=== PATIENT | male | born 1930 | race Caucasian/White ===

== ENCOUNTER 2017-03-12 09:57 | Emergency (ER) | payer MEDICARE ==
[2017-03-12] MEDS ORDERED: Sodium Chloride 0.9% 10 ML Syringe FLUSH PRN (10:12)
[2017-03-12] MEDS ORDERED: Sodium Chloride 0.9% 2.5 ML Syringe FLUSH PRN (10:12)
[2017-03-12] MEDS ORDERED: Aspirin 81 MG Tab.Chew PO ONE (10:17)
--- NOTE | 2017-03-12 10:51 | EDM.PDOC ---
ED HPI GENERAL MEDICAL PROBLEM - General Stated Complaint: FAINTED Time Seen by Provider: 03/12/17 10:01 Source of Information: Reports: Patient History Limitations: Reports: No Limitations - History of Present Illness INITIAL COMMENTS - FREE TEXT/NARRATIVE: History of present illness: []Patient was sitting down about to his breakfast when he passed out in his chair. Apparently a witness at home stated this color change. By the time EMS arrived he was awake, had some left arm weakness and sluggish pupils but otherwise neurologically normal. When patient arrived and had no focal deficits denied any chest pain, headache, change in vision, numbness or tingling and stated he was hungry. Review of systems: As per history of present illness and below otherwise all systems reviewed and negative. Past medical history: As per history of present illness and as reviewed below otherwise noncontributory. Surgical history: As per history of present illness and as reviewed below otherwise noncontributory. Social history: No reported history of drug or alcohol abuse. Family history: As per history of present illness and as reviewed below otherwise noncontributory. Physical exam: General: Well developed, well nourished in NAD HEENT: Atraumatic, normocephalic, pupils reactive, negative for conjunctival pallor or scleral icterus, mucous membranes moist, throat clear, neck supple, nontender, trachea midline. Lungs: Clear to auscultation, breath sounds equal bilaterally, chest nontender. Heart: S1S2, regular, negative for clicks, rubs, or JVD. Abdomen: Soft, nondistended, nontender. Negative for masses or hepatosplenomegaly. Negative for costovertebral tenderness. Pelvis: Stable nontender. Genitourinary: Deferred. Rectal: Deferred. Extremities: Atraumatic, negative for cords or calf pain. Neurovascular unremarkable. Neuro: Awake, alert, oriented. Cranial nerves II through XII unremarkable. Cerebellum unremarkable. Motor and sensory unremarkable throughout. Exam nonfocal. Diagnostics: [] CT shows small vessel disease otherwise normal, labs are normal Therapeutics: [] Patient was given fluids and observed Impression: [] Syncopal episodes. Family at the bedside asking for admission however patient refused Plan: [] Followup PMD and cardiology for possible Holter monitoring Definitive disposition and diagnosis as appropriate pending reevaluation and review of above. Right knee Pain Score (Numeric/FACES): 4 - Related Data Allergies Allergy/AdvReac Type Severity Reaction Status Date / Time No Known Allergies Allergy Verified 03/12/17 10:23 Home Meds: Home Meds . [No Known Home Meds] 03/12/17 [History] ED ROS GENERAL - Review of Systems Review Of Systems: See Below (See history of present illness) - Physical Exam Exam: See Below (See history of present illness) Course - Vital Signs Last Recorded V/S: Last Vital Signs Temp 36.1 C 03/12/17 09:58 Pulse 70 03/12/17 11:30 Resp 16 03/12/17 11:30 BP 132/70 03/12/17 11:30 Pulse Ox 98 03/12/17 11:30 - Orders/Labs/Meds Orders: Active Orders 24 hr Category Date Time Status Sodium Chloride 0.9% [Saline Flush] Med 03/12/17 10:12 Active 10 ml FLUSH ASDIRECTED PRN Sodium Chloride 0.9% [Saline Flush] Med 03/12/17 10:12 Active 2.5 ml FLUSH ASDIRECTED PRN Saline Lock Insert [OM.PC] Stat Oth 03/12/17 10:12 Ordered Medication Orders Sodium Chloride (Saline Flush) 10 ml FLUSH ASDIRECTED PRN PRN Reason: Keep Vein Open Last Admin: 03/12/17 10:36 Dose: 10 ml Sodium Chloride (Saline Flush) 2.5 ml FLUSH ASDIRECTED PRN PRN Reason: Keep Vein Open Last Admin: 03/12/17 10:36 Dose: 2.5 ml Labs: Laboratory Tests 03/12/17 03/12/17 03/12/17 Range/Units 10:10 10:10 10:10 WBC 10.54 (4.0-11.0) K/uL RBC 4.13 L (4.50-5.90) M/uL Hgb 12.7 L (13.0-17.0) g/dL Hct 39.6 (38.0-50.0) % MCV 95.9 (80.0-98.0) fL MCH 30.8 (27.0-32.0) pg MCHC 32.1 (31.0-37.0) g/dL RDW Std Deviation 49.7 (28.0-62.0) fl RDW Coeff of Francisco 14 (11.0-15.0) % Plt Count 230 (150-400) K/uL MPV 8.90 (7.40-12.00) fL Neut % (Auto) 56.6 (48.0-80.0) % Lymph % (Auto) 33.0 (16.0-40.0) % [place] % (Auto) 7.7 (0.0-15.0) % Eos % (Auto) 2.5 (0.0-7.0) % Baso % (Auto) 0.2 (0.0-1.5) % Neut # (Auto) 6.0 H (1.4-5.7) K/uL Lymph # (Auto) 3.5 H (0.6-2.4) K/uL [place] # (Auto) 0.8 (0.0-0.8) K/uL Eos # (Auto) 0.3 (0.0-0.7) K/uL Baso # (Auto) 0.0 (0.0-0.1) K/uL Nucleated RBC % 0.0 /100WBC Nucleated RBCs # 0 K/uL Sodium 141 (136-146) mmol/L Potassium 4.7 (3.5-5.1) mmol/L Chloride 108 (98-110) mmol/L Carbon Dioxide 23 (21-31) mmol/L BUN 23 (6.0-23.0) mg/dL Creatinine 1.4 (0.6-1.5) mg/dL Est Cr Clr Drug Dosing 37.66 mL/min Estimated GFR (MDRD) 47.8 ml/min Glucose 141 H (60-110) mg/dL Calcium 9.0 (8.8-10.8) mg/dL Total Bilirubin 0.9 (0.1-1.5) mg/dL AST 18 (5-40) IU/L ALT 15 (8-54) IU/L Alkaline Phosphatase 52 (40-150) Troponin I < 0.10 (0.0-0.29) NG/ML Total Protein 7.9 (6.0-8.0) g/dL Albumin 4.2 (3.4-4.8) g/dL Globulin 3.7 H (2.0-3.5) g/dL Albumin/Globulin Ratio 1.1 L (1.3-2.8) Meds: Medications Generic Name Dose Route Start Last Admin Trade Name Freq PRN Reason Stop Dose Admin Sodium Chloride 10 ml 03/12/17 10:12 03/12/17 10:36 Saline Flush FLUSH 10 ml ASDIRECTED PRN Administration Keep Vein Open Sodium Chloride 2.5 ml 03/12/17 10:12 03/12/17 10:36 Saline Flush FLUSH 2.5 ml ASDIRECTED PRN Administration Keep Vein Open Discontinued Medications Generic Name Dose Route Start Last Admin Trade Name Freq PRN Reason Stop Dose Admin Aspirin 324 mg 03/12/17 10:17 03/12/17 10:34 Aspirin PO 03/12/17 10:18 324 mg ONETIME ONE Administration Departure - Departure Time of Disposition: 11:45 Disposition: Home, Self-Care 01 Condition: good Clinical Impression: Syncopal episodes Qualifiers: Syncope type: unspecified Qualified Code(s): R55 - Syncope and collapse - Discharge Information Instructions: Syncope, [id number] Referrals: PCP,None [Primary Care Provider] - Forms: ED Department Discharge Additional Instructions: The following information is given to patients seen in the emergency department who are being discharged to home. This information is to outline your options for follow-up care. We provide all patients seen in our emergency department with a follow-up referral. The need for follow-up, as well as the timing and circumstances, are variable depending upon the specifics of your emergency department visit. If you don't have a primary care physician on staff, we will provide you with a referral. We always advise you to contact your personal physician following an emergency department visit to inform them of the circumstance of the visit and for follow-up with them and/or the need for any referrals to a consulting specialist. The emergency department will also refer you to a specialist when appropriate. This referral assures that you have the opportunity for follow-up care with a specialist. All of these measure are taken in an effort to provide you with optimal care, which includes your follow-up. Under all circumstances we always encourage you to contact your private physician who remains a resource for coordinating your care. When calling for follow-up care, please make the office aware that this follow-up is from your recent emergency room visit. If for any reason you are refused follow-up, please contact the [facility] Emergency Department at and asked to speak to the emergency department charge nurse. ANDRÉS [facility] [address] [place] [id number] [facility] [address] [place] [address] [place] [id number] [phone] - My Orders Last 24 Hours: My Active Orders 03/12/17 10:12 Sodium Chloride 0.9% [Saline Flush] 10 ml FLUSH ASDIRECTED PRN Sodium Chloride 0.9% [Saline Flush] 2.5 ml FLUSH ASDIRECTED PRN Saline Lock Insert [OM.PC] Stat - Assessment/Plan Last 24 Hours: My Active Orders 03/12/17 10:12 Sodium Chloride 0.9% [Saline Flush] 10 ml FLUSH ASDIRECTED PRN Sodium Chloride 0.9% [Saline Flush] 2.5 ml FLUSH ASDIRECTED PRN Saline Lock Insert [OM.PC] Stat
--- NOTE | 2017-03-12 11:20 | CT ---
EXAMINATION: Non contrast CT head. Coronal and sagittal reformats. HISTORY: Confusion FINDINGS: No evidence of intra or extra axial hemorrhage, mass, midline shift, hydrocephalus or edema. There is moderate generalized atrophy. 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 Mild periventricular wh ite matter hypodensities are noted. No hypoattenuation changes in the major vascular territories to suggest acute infarct. No abnormal intracranial calcifications are detected. No evidence of substantial vascular calcifica tions. Paranasal sinuses and mastoid air cells are well aerated without substantial findings. The orbits a nd globes are symmetric. Pituitary fossa appears unremarkable. Calvarium is intact. No evidence of skull fracture. Degenerative changes are noted within the right temporomandibular joint. IMPRESSION: 1. Generalized atrophy and small vessel ischemic changes without acute findings.
--- NOTE | 2017-03-12 11:21 | CR ---
EXAMINATION: Portable chest radiograph. HISTORY: Shortness of breath. FINDINGS: The trachea is midline. The cardiomediastinal silhouette is within normal limits. No pulmonary infil trates, effusions or pneumothorax. Mild interstitial prominence. Aortic calcifications are noted. Osseous structures appear unremarkable. IMPRESSION: No acute cardiopulmonary process.
[2017-03-12 12:13] VITALS: BP 141/70
== END 2017-03-12 12:11 | disposition home or self-care (01) ==
LOC: MW.ED 09:57
DX: R55 Syncope and collapse (principal)
CPT/HCPCS: 70450; 71010; 80053; 84484; 85025; 93005; 99285; A9270; 99284

== ENCOUNTER 2017-09-01 15:11 | Inpatient (IN) | payer MEDICARE ==
[2017-09-01] MEDS ORDERED: Sodium Chloride 0.9% 1,000 ML IV ONE (15:36)
[2017-09-01] MEDS ORDERED: Ketorolac 15 MG/ML SDV IVPUSH STA ×2 (15:36→18:06)
--- NOTE | 2017-09-01 15:45 | EDM.PDOC ---
ED HPI GENERAL MEDICAL PROBLEM - General Chief Complaint: Lower Extremity Injury/Pain Stated Complaint: LEFT HIP PAIN Time Seen by Provider: 09/01/17 15:13 Source of Information: Reports: Patient, Family History Limitations: Reports: No Limitations - History of Present Illness INITIAL COMMENTS - FREE TEXT/NARRATIVE: HISTORY AND PHYSICAL: History of present illness: Patient is an 87-year-old male who presents to the emergency room by [facility] after having a fall this morning. The daughter is at the bedside and states that he was placed in [facility] approximately 2 weeks ago for dementia. She states that since that time he has had multiple falls which have been witnessed an unwitnessed. [facility] nursing staff reported that they believe he fell sometime last night as he has a new skin tear to his left elbow. Today while ambulating to lunch he felt "on his bottom" but did not hit his head. Patient is alert but disoriented to place and time; it is the patient's baseline per daughter. He currently complains of left hip pain which increases with ambulation and weightbearing. Has had no previous injury, surgery or major trauma to the affected extremity. Patient has a past medical history of dementia, aortic valve stenosis with murmur, muscle weakness, chronic kidney disease, and syncope. Review of systems: As per history of present illness and below otherwise all systems reviewed and negative. Past medical history: As per history of present illness and as reviewed below otherwise noncontributory. Surgical history: As per history of present illness and as reviewed below otherwise noncontributory. Social history: No reported history of drug or alcohol abuse. Family history: As per history of present illness and as reviewed below otherwise noncontributory. Physical exam: Gen.: Well-developed and well-nourished 87-year-old male. Pleasant, alert but disoriented to person and place (has dementia at baseline). HEENT: Normocephalic, pupils reactive, negative for conjunctival pallor or scleral icterus, mucous membranes moist, throat clear, neck supple, nontender, trachea midline. Lungs: Clear to auscultation, breath sounds equal bilaterally, chest nontender. Heart: S1S2, regular rate and rhythm with murmur Abdomen: Soft, nondistended, nontender. Negative for masses or hepatosplenomegaly. Negative for costovertebral tenderness. Pelvis: Stable nontender. Genitourinary: Deferred. Rectal: This was done with a drop wirer at the bedside. No external or internal hemorrhoids noted. Good rectal tone. Negative Hemoccult stool. Skin: Skin tear noted to left elbow. Multiple bruises noted to the upper extremities at various stages of healing. Daughter reports that this is from the falls he has been having over the past several months. Some soft tissue swelling noted over the left lateral hip. Extremities: Able to move all extremities per self. Has increased pain with range of motion. Strong pedal pulses bilaterally. Capillary refill less than 3 seconds to lower extremities. No obvious rotation or shortening of the left lower extremity. negative for cords or calf pain. Neurovascular unremarkable. Neuro: Awake, alert, is oriented to place and time. Cranial nerves II through XII unremarkable. Cerebellum unremarkable. Motor and sensory unremarkable throughout. Exam nonfocal. Notes: 1700-patient is just now going down for imaging/x-ray. Prior to transfer to radiology department patient states he is comfortable. Vital signs are stable. Awaiting on some labs. 1750-Head CT: No evidence of an acute intracranial hemorrhage, or mass. No acute findings on the cervical spine CT. 1810- The patient has difficulty performing ADLs. The nurse went to give the patient to drink of water and he put the water in his mouth and spit it back in the cup. Staff also assisted him to use the urinal and he had difficulty performing this activity. The family at the bedside states that he progressively gotten worse with performing ADLs. 1830- no acute findings of the left ankle x-ray. X-ray of the left hip and pelvis recommend getting a CT. Due to the Hemoglobin of 9.5 (was previously 12.7 in 03/2017) - a rectal/hemocult assessment was done with a drop wirer with a chaparone at bedside - Negative hemoccult stool. 184- Dr Conley was consulted on this case. She would like to wait to view the CT results prior to accepting this patient. 1999- CT abdomen/pelvis shows nondisplaced fractures of the left superior pubic ramus and left pubic bone. Dr. Conley consulted with this results. Will admit to med/surg as inpatient for anemia & fracture. Diagnostics: CBC, CMP, CPK, troponin, EKG, head CT, cervical spine CT, x-ray of the left hip/ pelvis, left knee, left ankle, CT abdomen/pelvis Therapeutics: IV fluid, tramadol, toradol Impression: #1 Contusion, #2 Fall, #3 anemia #4 Nondisplaced superior pubic ramus and pubic bone fracture, left Plan: Admit to Med/Surg by Dr Conley- Inpatient Definitive disposition and diagnosis as appropriate pending reevaluation and review of above. Duration: Week(s): (Recurring today) Location: Reports: Pelvis, Lower Extremity, Left Improves with: Reports: Rest Worsens with: Reports: Other (Weight bearing), Movement Associated Symptoms: Reports: No Other Symptoms - Related Data Allergies Allergy/AdvReac Type Severity Reaction Status Date / Time No Known Allergies Allergy Verified 09/01/17 15:23 Home Meds: Home Meds . [No Known Home Meds] 03/12/17 [History] Past Medical History - Past Health History Medical/Surgical History: Denies Medical/Surgical History HEENT History: Reports: Cataract Cardiovascular History: Reports: None Respiratory History: Reports: None Gastrointestinal History: Reports: None Genitourinary History: Reports: None Musculoskeletal History: Reports: Arthritis Neurological History: Reports: None Psychiatric History: Reports: Dementia Endocrine/Metabolic History: Reports: None Hematologic History: Reports: None Immunologic History: Reports: None Oncologic (Cancer) History: Reports: None Dermatologic History: Reports: None - Infectious Disease History Infectious Disease History: Reports: None - Past Surgical History Head Surgeries/Procedures: Reports: None HEENT Surgical History: Reports: Cataract Surgery Cardiovascular Surgical History: Reports: None Respiratory Surgical History: Reports: None GI Surgical History: Reports: None Male Surgical History: Reports: None Endocrine Surgical History: Reports: None Neurological Surgical History: Reports: None Dermatological Surgical History: Reports: None Social & Family History - Family History Family Medical History: Noncontributory - Tobacco Use Smoking Status *Q: Never Smoker Second Hand Smoke Exposure: No - Caffeine Use Caffeine Use: Reports: Coffee - Recreational Drug Use Recreational Drug Use: No Review of Systems - Review of Systems Review Of Systems: ROS reveals no pertinent complaints other than HPI. ED EXAM, GENERAL - Physical Exam Exam: See Below (See dictation) EKG INTERPRETATION EKG Date: 09/01/17 Time: 17:40 Rhythm: NSR Rate (Beats/Min): 84 Comparison: Change From Previous EKG EKG Interpretation Comments: Reviewed by myself and Dr Scruggs Course - Vital Signs Last Recorded V/S: Last Vital Signs Temp 98.3 F 09/01/17 19:14 Pulse 73 09/01/17 19:14 Resp 21 H 09/01/17 19:14 BP 101/63 09/01/17 19:14 Pulse Ox 96 09/01/17 19:14 - Orders/Labs/Meds Orders: Active Orders 24 hr Category Date Time Status Admission Status [Patient Status] [ADT] Stat ADT 09/01/17 20:10 Ordered Communication Order [RC] STAT Care 09/01/17 18:09 Active EKG Documentation Completion [RC] STAT Care 09/01/17 15:36 Active Abdomen Pelvis wo Cont [CT] Stat Exams 09/01/17 18:41 Taken Ankle Min 3V Lt [CR] Stat Exams 09/01/17 15:36 Ordered Cervical Spine wo Cont [CT] Stat Exams 09/01/17 15:34 Taken Chest 1V Frontal [CR] Stat Exams 09/01/17 15:34 Ordered Head wo Cont [CT] Stat Exams 09/01/17 15:34 Taken Hip Min 1V w Pelvis Lt [CR] Stat Exams 09/01/17 15:36 Ordered Knee 1V or 2V Lt [CR] Stat Exams 09/01/17 15:36 Taken Sodium Chloride 0.9% [Normal Saline] 1,000 ml Med 09/01/17 15:36 Active IV STAT Medication Orders Sodium Chloride (Normal Saline) 1,000 mls @ 150 mls/hr IV STAT ONE Stop: 09/01/17 22:15 Last Admin: 09/01/17 16:03 Dose: 150 mls/hr Labs: Laboratory Tests 09/01/17 09/01/17 09/01/17 Range/Units 16:00 16:00 16:49 WBC 6.78 (4.0-11.0) K/uL RBC 3.18 L (4.50-5.90) M/uL Hgb 9.5 L (13.0-17.0) g/dL Hct 29.6 L (38.0-50.0) % MCV 93.1 (80.0-98.0) fL MCH 29.9 (27.0-32.0) pg MCHC 32.1 (31.0-37.0) g/dL RDW Std Deviation 47.7 (28.0-62.0) fl RDW Coeff of [place] 14 (11.0-15.0) % Plt Count 246 (150-400) K/uL MPV 8.40 (7.40-12.00) fL Neut % (Auto) 75.6 (48.0-80.0) % Lymph % (Auto) 11.4 L (16.0-40.0) % [place] % (Auto) 10.5 (0.0-15.0) % Eos % (Auto) 2.4 (0.0-7.0) % Baso % (Auto) 0.1 (0.0-1.5) % Neut # (Auto) 5.1 (1.4-5.7) K/uL Lymph # (Auto) 0.8 (0.6-2.4) K/uL [place] # (Auto) 0.7 (0.0-0.8) K/uL Eos # (Auto) 0.2 (0.0-0.7) K/uL Baso # (Auto) 0.0 (0.0-0.1) K/uL Nucleated RBC % 0.0 /100WBC Nucleated RBCs # 0 K/uL Sodium 134 L (136-146) mmol/L Potassium 4.2 (3.5-5.1) mmol/L Chloride 102 (98-110) mmol/L Carbon Dioxide 25 (21-31) mmol/L BUN 17 (6.0-23.0) mg/dL Creatinine 1.0 (0.6-1.5) mg/dL Est Cr Clr Drug Dosing TNP Estimated GFR (MDRD) > 60.0 ml/min Glucose 129 H (60-110) mg/dL Calcium 8.2 L (8.8-10.8) mg/dL Total Bilirubin 0.6 (0.1-1.5) mg/dL AST 18 (5-40) IU/L ALT 20 (8-54) IU/L Alkaline Phosphatase 52 (40-150) Creatine Kinase 329 H (9-236) IU/L Troponin I < 0.10 (0.0-0.29) NG/ML Total Protein 6.6 (6.0-8.0) g/dL Albumin 3.3 L (3.4-4.8) g/dL Globulin 3.3 (2.0-3.5) g/dL Albumin/Globulin Ratio 1.0 L (1.3-2.8) Urine Color YELLOW Urine Appearance CLEAR Urine pH 6.0 (5.0-8.0) Ur Specific [place] 1.010 (1.001-1.035) Urine Protein NEGATIVE (NEGATIVE) mg/dL Urine Glucose (UA) NEGATIVE (NEGATIVE) mg/dL Urine Ketones NEGATIVE (NEGATIVE) mg/dL Urine Occult Blood NEGATIVE (NEGATIVE) Urine Nitrite NEGATIVE (NEGATIVE) Urine Bilirubin NEGATIVE (NEGATIVE) Urine Urobilinogen 0.2 (<2.0) EU/dL Ur Leukocyte Esterase NEGATIVE (NEGATIVE) Urine RBC NONE SEEN (0-2/HPF) Urine WBC 0-1 (0-5/HPF) Ur Epithelial Cells OCCASIONAL (NONE-FEW) Urine Bacteria RARE (NEGATIVE) Meds: Medications Generic Name Dose Route Start Last Admin Trade Name Freq PRN Reason Stop Dose Admin Sodium Chloride 1,000 mls @ 150 mls/hr 09/01/17 15:36 09/01/17 16:03 Normal Saline IV 09/01/17 22:15 150 mls/hr STAT ONE Administration Discontinued Medications Generic Name Dose Route Start Last Admin Trade Name Freq PRN Reason Stop Dose Admin Bacitracin 1 dose 09/01/17 18:08 09/01/17 19:47 Bacitracin Oint 1 Gm TOP 09/01/17 18:09 1 dose ONETIME ONE Administration Ketorolac Tromethamine 15 mg 09/01/17 15:36 09/01/17 16:05 Toradol IVPUSH 09/01/17 15:37 Not Given NOW STA Ketorolac Tromethamine 15 mg 09/01/17 18:06 09/01/17 18:11 Toradol IVPUSH 09/01/17 18:07 15 mg NOW STA Administration Tramadol HCl 50 mg 09/01/17 15:47 09/01/17 16:43 Ultram PO 09/01/17 15:48 50 mg ONETIME ONE Administration Departure - Departure Time of Disposition: 20:14 Disposition: Admitted As Inpatient 64 Condition: Good Clinical Impression: Falls frequently Anemia Qualifiers: Anemia type: unspecified type Qualified Code(s): D64.9 - Anemia, unspecified Pubic ramus fracture Qualifiers: Encounter type: initial encounter Fracture type: closed Laterality: left Qualified Code(s): S32.592A - Other specified fracture of left pubis, initial encounter for closed fracture - Discharge Information Referrals: Emmanuel Raygoza MD [Primary Care Provider] - Forms: ED Department Discharge - My Orders Last 24 Hours: My Active Orders 09/01/17 15:34 Cervical Spine wo Cont [CT] Stat Chest 1V Frontal [CR] Stat Head wo Cont [CT] Stat 09/01/17 15:36 EKG Documentation Completion [RC] STAT Ankle Min 3V Lt [CR] Stat Hip Min 1V w Pelvis Lt [CR] Stat Knee 1V or 2V Lt [CR] Stat Sodium Chloride 0.9% [Normal Saline] 1,000 ml IV STAT 09/01/17 18:09 Communication Order [RC] STAT 09/01/17 18:41 Abdomen Pelvis wo Cont [CT] Stat 09/01/17 20:10 Admission Status [Patient Status] [ADT] Stat - Assessment/Plan Last 24 Hours: My Active Orders 09/01/17 15:34 Cervical Spine wo Cont [CT] Stat Chest 1V Frontal [CR] Stat Head wo Cont [CT] Stat 09/01/17 15:36 EKG Documentation Completion [RC] STAT Ankle Min 3V Lt [CR] Stat Hip Min 1V w Pelvis Lt [CR] Stat Knee 1V or 2V Lt [CR] Stat Sodium Chloride 0.9% [Normal Saline] 1,000 ml IV STAT 09/01/17 18:09 Communication Order [RC] STAT 09/01/17 18:41 Abdomen Pelvis wo Cont [CT] Stat 09/01/17 20:10 Admission Status [Patient Status] [ADT] Stat
[2017-09-01] MEDS ORDERED: traMADol 50 MG Tab PO ONE (15:47)
[2017-09-01 16:33] LABS: CHLORIDE,CL 102 mmol/L (98-110); SODIUM,NA 134 mmol/L (136-146)
[2017-09-01] MEDS ORDERED: Bacitracin Oint 1 GM U/D Packet TOP ONE (18:08)
[2017-09-01] MEDS ORDERED: Albuterol 0.083% 2.5 MG/3 ML Neb Soln NEB PRN (21:06)
[2017-09-01] MEDS ORDERED: Sodium Chloride 0.9% 2.5 ML Syringe FLUSH PRN (21:06)
[2017-09-01] MEDS ORDERED: Sodium Chloride 0.9% 10 ML Syringe FLUSH PRN (21:06)
[2017-09-01] MEDS ORDERED: Morphine 2 MG/ML Syringe IVPUSH PRN (21:06)
[2017-09-01] MEDS: LORazepam 2 MG/ML SDV IVPUSH PRN (21:19)
[2017-09-01] MEDS ORDERED: LORazepam 2 MG/ML SDV IVPUSH ONE (21:37)
[2017-09-02] MEDS: LORazepam 2 MG/ML SDV IVPUSH PRN ×2 (04:05→20:24)
[2017-09-02 05:47] LABS: CHLORIDE,CL 105 mmol/L (98-110); SODIUM,NA 137 mmol/L (136-146)
--- NOTE | 2017-09-02 08:44 | PCM.HP ---
H&P History of Present Illness - General Date of Service: 09/02/17 Admit Problem/Dx: Admission Diagnosis/Problem Admission Diagnosis/Problem Anemia Source of Information: Family History Limitations: Reports: Altered Mental Status - History of Present Illness Initial Comments - Free Text/Narative: This 87 salv[place] old male with pmh of dementia presented to the ED from [place] after he sustained a fall at [place] this morning. I spoke with daughter, Leana, who was at his bedside this morning. Vitaliy was placed in [place] 13 days ago, because of his dementia and inability to completed ADLs. Leana reports since then his confusion has been worse and she doesn't feel like he is sleeping well at night due to a roommate issue. Also since his admission to [place] he has had many witness and unwitnessed falls. Yesterday he was noted to have falled because a new skin tear was noted to his L forearm and he started complaining of L hip pain and was unable to ambulate on his left leg. He is disoriented this morning, picking at the air, frequently attempting to get out of the bed or moving legs in attempt of this. He is easily settled but does not stay calm for long. He answers simple questions and denies pain, chest pain or trouble breathing. He takes no medications on a daily basis. Multiple bruises, of all healing stages noted to bilateral arms and legs. Newest appears to be to the L hip, with is bright blue and purple with some noted edema underneath this. L forearm sking tear is bandaged at this time, old healing skin tear to R albow with bruising and scab intact. In the ED, hgb 9.5, which from our records is down from 12.5 03/2017. I obtained records from Dr Raygoza, on 08/19/2017 hgb 11.2. Na 134, Ua negative. VS stable. Head CT no acute findings, age related changes with atrophy and chronic ischemic changes. L ankle xray negative for fractures. CT cervical spine, revealed mild compression of C7 vertebral body which appears non-acute, if clinical concern follow with MRI. He has no complaints of parathesia or neck pain. CXR negative. L knee xray revealed osteoarthritis, no acute fractures. L hip xray revealed apparent contour irregularity of R sacral border, linear calcific densities projecting over the left pubis correlate with CT. CT of abd/ pelvis revealed non-displaced fracture seen through the left superior pubic ramus extending to the left pubic bone. Femoral necks intact. There is some fat stranding seen along the left pelvic sidewall suggesting minimal blood or edema no pelvic sidewall hematoma. Mild bladder wall thickening, possible incomplete distension vs bladder outlet obstruction as prostate is generous in size. He was admitted for fall, non displaced pubic ramus fracture and acute delirium. - Related Data Allergies/Adverse Reactions: Allergies Allergy/AdvReac Type Severity Reaction Status Date / Time No Known Allergies Allergy Verified 09/01/17 15:23 Home Medications: Home Meds . [No Known Home Meds] 03/12/17 [History] Past Medical History - Past Health History Medical/Surgical History: Denies Medical/Surgical History HEENT History: Reports: Cataract Cardiovascular History: Reports: None. Denies: Afib, Blood Clots/VTE/DVT, High Cholesterol, Hypertension, [place] Respiratory History: Reports: None. Denies: COPD, PE Gastrointestinal History: Reports: None. Denies: GI Bleed Genitourinary History: Reports: None Musculoskeletal History: Reports: Arthritis, Osteoarthritis Neurological History: Reports: Other (See Below) (dementia, wanders) Psychiatric History: Reports: Dementia Endocrine/Metabolic History: Reports: None. Denies: Diabetes, Type II, Obesity/ BMI 30+ Hematologic History: Reports: None Immunologic History: Reports: None Oncologic (Cancer) History: Reports: None Dermatologic History: Reports: None - Infectious Disease History Infectious Disease History: Reports: None - Past Surgical History Head Surgeries/Procedures: Reports: None HEENT Surgical History: Reports: Cataract Surgery Cardiovascular Surgical History: Reports: None Respiratory Surgical History: Reports: None GI Surgical History: Reports: None Male Surgical History: Reports: None Endocrine Surgical History: Reports: None Neurological Surgical History: Reports: None Dermatological Surgical History: Reports: None Social & Family History - Family History Family Medical History: Noncontributory Cardiac: Reports: Heart Failure, Hypertension Respiratory: Reports: None - Tobacco Use Smoking Status *Q: Never Smoker Second Hand Smoke Exposure: No - Caffeine Use Caffeine Use: Reports: Coffee - Recreational Drug Use Recreational Drug Use: No H&P Review of Systems - Review of Systems: Review Of Systems: Unable To Obtain Exam - Exam Exam: See Below - Vital Signs Vital Signs: Last Vital Signs Temp 98.6 F 09/02/17 04:00 Pulse 72 09/02/17 04:00 Resp 18 09/02/17 04:00 BP 125/68 09/02/17 04:00 Pulse Ox 94 L 09/02/17 04:00 Weight: 68.447 kg - Exam General: Alert, Cooperative, Other (Will not follow commands). No: Oriented HEENT: Conjunctiva Clear, Mucosa Moist & Old [place], Nares Patent, Other (dentures out. ) Lungs: Clear to Auscultation, Normal Respiratory Effort Cardiovascular: Regular Rate, Regular Rhythm GI/Abdominal Exam: Normal Bowel Sounds, Soft, Non-Tender, No Organomegaly, No Distention, No Abnormal Bruit, No Mass, Pelvis Stable Extremities: Normal Range of Motion, No Pedal Edema, Normal Capillary Refill Skin: Other (Extensive bruising to bilateral arms, with new skin tear to L forearm and healing old to R elbow with surrounding bruising. Bruising noted to R hip, old along with R medial knee and thigh. R great toe and toenail bruised as well. Newer bruise to L hip noted, bright blue and purple with surrounding edema.) Neuro Extensive - Mental Status: Alert, Other (picking at the air, answeres a few question, but won't follow commands.). No: Oriented x3, Normal Mood/Affect Psychiatric: Alert, Normal Affect, Normal Mood - Patient Data Lab Results Last 24 hrs: Laboratory Results - last 24 hr 09/02/17 09/02/17 Range/Units 05:24 05:24 WBC 6.17 (4.0-11.0) K/uL RBC 3.23 L (4.50-5.90) M/uL Hgb 9.6 L (13.0-17.0) g/dL Hct 30.1 L (38.0-50.0) % MCV 93.2 (80.0-98.0) fL MCH 29.7 (27.0-32.0) pg MCHC 31.9 (31.0-37.0) g/dL RDW Std Deviation 47.7 (28.0-62.0) fl RDW Coeff of Francisco 14 (11.0-15.0) % Plt Count 210 (150-400) K/uL MPV 8.40 (7.40-12.00) fL Neut % (Auto) 71.7 (48.0-80.0) % Lymph % (Auto) 15.1 L (16.0-40.0) % Forrest % (Auto) 9.6 (0.0-15.0) % Eos % (Auto) 3.4 (0.0-7.0) % Baso % (Auto) 0.2 (0.0-1.5) % Neut # (Auto) 4.4 (1.4-5.7) K/uL Lymph # (Auto) 0.9 (0.6-2.4) K/uL Forrest # (Auto) 0.6 (0.0-0.8) K/uL Eos # (Auto) 0.2 (0.0-0.7) K/uL Baso # (Auto) 0.0 (0.0-0.1) K/uL Nucleated RBC % 0.0 /100WBC Nucleated RBCs # 0 K/uL Sodium 137 (136-146) mmol/L Potassium 4.3 (3.5-5.1) mmol/L Chloride 105 (98-110) mmol/L Carbon Dioxide 26 (21-31) mmol/L BUN 17 (6.0-23.0) mg/dL Creatinine 0.9 (0.6-1.5) mg/dL Est Cr Clr Drug Dosing 50.21 mL/min Estimated GFR (MDRD) > 60.0 ml/min Glucose 96 (60-110) mg/dL Calcium 8.2 L (8.8-10.8) mg/dL Total Bilirubin 0.8 (0.1-1.5) mg/dL AST 17 (5-40) IU/L ALT 19 (8-54) IU/L Alkaline Phosphatase 49 (40-150) Total Protein 6.3 (6.0-8.0) g/dL Albumin 3.1 L (3.4-4.8) g/dL Globulin 3.2 (2.0-3.5) g/dL Albumin/Globulin Ratio 1.0 L (1.3-2.8) Result Diagrams: 09/02/17 05:24 09/02/17 05:24 *Q Meaningful Use (ADM) - VTE *Q VTE Criteria *Q: - Stroke *Q Stroke Criteria *Q: - AMI *Q AMI Criteria *Q: - Problem List (1) Pubic ramus fracture SNOMED Code(s): 18932115 ICD Code: S32.599A - OTH FRACTURE OF UNSP PUBIS, INIT ENCNTR FOR CLOSED FRACTURE Status: Acute Current Visit: Yes Qualifiers: Encounter type: initial encounter Fracture type: closed Laterality: left Qualified Code(s): S32.592A - Other specified fracture of left pubis, initial encounter for closed fracture (2) Acute delirium SNOMED Code(s): 9365601 ICD Code: R41.0 - DISORIENTATION, UNSPECIFIED Status: Acute Current Visit : Yes (3) Anemia SNOMED Code(s): 887969361 ICD Code: D64.9 - ANEMIA, UNSPECIFIED Status: Acute Current Visit: Yes Qualifiers: Anemia type: unspecified type Qualified Code(s): D64.9 - Anemia, unspecified (4) Falls frequently SNOMED Code(s): 840322819 ICD Code: R29.6 - REPEATED FALLS Status: Acute Current Visit: Yes (5) Dementia SNOMED Code(s): 66384219 ICD Code: F03.90 - UNSPECIFIED DEMENTIA WITHOUT BEHAVIORAL DISTURBANCE Status: Chronic Current Visit: Yes Qualifiers: Alzheimer's disease onset: other onset Dementia behavioral disturbance: without behavioral disturbance Problem List Initiated/Reviewed/Updated: Yes Orders Last 24hrs: Active Orders 24 hr Category Date Time Status Patient Status [ADT] Routine ADT 09/01/17 21:06 Active Bedrest Bedside Commode [RC] ASDIRECTED Care 09/01/17 21:06 Active Oxygen Therapy [RC] PRN Care 09/01/17 21:06 Active RT Aerosol Therapy [RC] .PRN Care 09/01/17 21:14 Active Vital Signs [RC] Q4H Care 09/01/17 21:06 Active PT Evaluation and Treatment [CONS] Routine Cons 09/01/17 21:06 Active Regular Diet [DIET] Diet 09/01/17 Dinner Active CBC WITH AUTO DIFF [HEME] AM Lab 09/03/17 05:11 Ordered CBC WITH AUTO DIFF [HEME] AM Lab 09/04/17 05:11 Ordered CBC WITH AUTO DIFF [HEME] AM Lab 09/05/17 05:11 Ordered COMPREHENSIVE METABOLIC PN,CMP [CHEM] AM Lab 09/03/17 05:11 Ordered COMPREHENSIVE METABOLIC PN,CMP [CHEM] AM Lab 09/04/17 05:11 Ordered COMPREHENSIVE METABOLIC PN,CMP [CHEM] AM Lab 09/05/17 05:11 Ordered Albuterol [Proventil Neb Soln] Med 09/01/17 21:06 Active 2.5 mg NEB Q2H PRN LORazepam [Ativan] Med 09/01/17 21:03 Active 1 mg IVPUSH Q4H PRN Morphine Med 09/01/17 21:06 Active 2 mg IVPUSH Q2H PRN Sodium Chloride 0.9% [Saline Flush] Med 09/01/17 21:06 Active 10 ml FLUSH ASDIRECTED PRN Sodium Chloride 0.9% [Saline Flush] Med 09/01/17 21:06 Active 2.5 ml FLUSH ASDIRECTED PRN Peripheral IV Insertion Adult [OM.PC] Routine Oth 09/01/17 21:06 Ordered Saline Lock Insert [OM.PC] Routine Oth 09/01/17 21:06 Ordered Resuscitation Status Routine Resus Stat 09/01/17 21:06 Ordered Medication Orders Albuterol (Proventil Neb Soln) 2.5 mg NEB Q2H PRN PRN Reason: Shortness Of Breath/wheezing Lorazepam (Ativan) 1 mg IVPUSH Q4H PRN PRN Reason: Agitation Last Admin: 09/02/17 04:05 Dose: 1 mg Admin: 09/01/17 21:19 Dose: 1 mg Morphine Sulfate (Morphine) 2 mg IVPUSH Q2H PRN PRN Reason: Pain (severe 7-10) Stop: 09/02/17 21:12 Sodium Chloride (Saline Flush) 10 ml FLUSH ASDIRECTED PRN PRN Reason: Keep Vein Open Sodium Chloride (Saline Flush) 2.5 ml FLUSH ASDIRECTED PRN PRN Reason: Keep Vein Open Assessment/Plan Comment:: This 87 year old male admitted with pubic rami fracture, new anemia, frequent falls, and acute delirium 1. Pubic rami fracture: Non displaced. Will order PT to evaluate and treat. Unable to follow commands at this time. Pain medications PRN 2. New anemia: may be due to falls some blood noted in pelvis, likely related to falls. No change in hgb this morning from admission. Will monitor daily. Iron studies pending. hemoccult negative. 3. Acute delirium: Onset likely when he went to [place] with new surroundings and poor sleep habits. Will discontinue Ativan and start Haldol. Frequent reorientation, limit interruptions, and orient to night and day times to assist with delirium. Family at bedside. 4. Falls: PT as above when patient is able to follow commands VTE prophylaxis: Hold pharmacologic for now due to blood in pelvis. SCDs as he allows. Dispo: 2-3 days pending improvement.
[2017-09-02] MEDS: Haloperidol Lactate 5 MG/ML SDV IM PRN ×2 (09:53→18:32)
--- NOTE | 2017-09-02 10:11 | CT ---
EXAM DATE: 09/01/17 PATIENT'S AGE: 87 Patient: SANTIAGO CANTU Facility: [place], [place] Site Site : 1930 Study: CT Head WO CONT [id number]/29/2017 5:19:20 PM Ordering Physician: NICK ACUNA NP Final Report: INDICATION: Fall. TECHNIQUE: CT head without contrast. COMPARISON: 03/12/2017 FINDINGS: Again noted is age related cortical atrophy. The ventricles demonstrate normal configuration and size for the patient`s age. There is no mass effect or midline shift. A few white matter hypodensities are suggestive of mild chronic small vessel ischemic changes. 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 There is no loss of whyte-white differentiation. There is no evidence of an acute intracranial hemorrhage. No acute calvarial fracture is seen. There are foci of mild paranasal sinus mucosal thickening as well as a mucosal retention cyst or polyp in the left maxillary sinus. The mastoid air cells are clear. The visualized orbits are stable. IMPRESSION: No evidence of an acute intracranial hemorrhage, mass effect or loss of whyte- white differentiation. Age-related atrophy and chronic ischemic changes again noted. Dictated by Kunal Marinelli MD @ 09/01/2017 5:54:26 PM Dictated by: Kunal Marinelli MD @ 09/01/2017 17:54:31 (Electronic Signature) Report Signed by Proxy. [facility]ENTERScotty
--- NOTE | 2017-09-02 10:15 | CT ---
EXAM DATE: 09/01/17 PATIENT'S AGE: 87 Patient: SANTIAGO CANTU Facility: [place], [place] Site Site : 1930 Study: CT Spine Cervical WO CONT [id number]/29/2017 5:21:17 PM Ordering Physician: NICK ACUNA NP Final Report: INDICATION: Fall TECHNIQUE: CT cervical spine without contrast. COMPARISON: None available FINDINGS: There is mild exaggeration of the cervical lordosis. The craniocervical and atlantoaxial alignments are near anatomical. There is mild anterior compression of the C7 vertebral body which appears nonacute. Otherwise, no acute cervical spine fracture is seen. There is no significant precervical soft tissue swelling. Degenerative changes are noted at several levels. IMPRESSION: Mild anterior compression of the C7 vertebral body which appears nonacute. If there is clinical concern, further evaluation with MRI can be considered. Dictated by Kunal Marinelli MD @ 09/01/2017 6:02:20 PM Dictated by: Kunal Marinelli MD @ 09/01/2017 18:02:30 (Electronic Signature) Report Signed by Proxy. [facility]
--- NOTE | 2017-09-02 10:16 | CR ---
EXAM DATE: 09/01/17 PATIENT'S AGE: 87 Patient: SANTIAGO CANTU Facility: [place], [place] Site . Site : 1930 Study: XRay Extremity Left Ankle [id number]/29/2017 5:45:26 PM Ordering Physician: Doctor Solano Final Report: Indication: Fall Technique: Three views of the left ankle Comparison: None available Findings: Bones: No acute fracture or dislocation. A bony protuberance off of the lateral aspect of the lateral malleolus, probably sequela of old trauma. Apparent osseous expansion of the proximal portion of the visualized fibular diaphysis. A plantar calcaneal spur. Joint spaces: Unremarkable. Soft tissues: Soft tissue swelling. Vascular calcifications. An ovoid corticated calcific density in the plantar aspect of the hindfoot, probably related to the plantar fascia. Impression: No acute fracture or dislocation seen. Apparent osseous expansion of the fibular diaphysis could be projectional, however recommend followup imaging evaluation. Dictated by Kunal Marinelli MD @ 09/01/2017 6:26:42 PM Dictated by: Kunal Marinelli MD @ 09/01/2017 18:26:46 (Electronic Signature) Report Signed by Proxy. [facility]
--- NOTE | 2017-09-02 10:17 | CR ---
EXAM DATE: 09/01/17 PATIENT'S AGE: 87 Patient: SANTIAGO CANTU Facility: [place], [place] Site . Site : 1930 Study: XRay Extremity Left Hip [id number]/29/2017 5:46:21 PM Ordering Physician: Doctor Solano Final Report: Indication: Fall Technique: A frontal view of the pelvis and single view of the left hip Comparison: None available Findings: Bones: Linear calcific densities projecting over the left pubis and extending to the obturator foramen could be related to overlying soft tissues. Apparent contour irregularity of the right sacral border. No dislocation. Joint spaces: Preserved joint spaces. Degenerative changes in the lower lumbar spine. Soft tissues: Unremarkable. Impression: Apparent contour irregularity of the right sacral border, of unclear chronicity. Linear calcific densities projecting over the left pubis could be related to overlying soft tissues, however if an acute bony abnormality is suspected, correlate with CT evaluation. Dictated by Kunal Marinelli MD @ 09/01/2017 6:31:55 PM Dictated by: Kunal Marinelli MD @ 09/01/2017 18:32:12 (Electronic Signature) Report Signed by Proxy. [facility]
--- NOTE | 2017-09-02 10:18 | CR ---
EXAM DATE: 09/01/17 PATIENT'S AGE: 87 Patient: SANTIAGO CANTU Facility: [place], [place] Site . Site : 1930 Study: XRay Chest [id number]/29/2017 5:47:15 PM Ordering Physician: Doctor Solano Final Report: INDICATION: Pain, shortness of breath. TECHNIQUE: Chest radiograph 1 view COMPARISON: 03/12/2017. FINDINGS: Cardiovascular and mediastinum: The heart silhouette is normal in size and morphology. Senescent calcifications of aortic arch. The mediastinum is normal in appearance. Lungs and pleural spaces: Both lungs are unremarkable in appearance. No sign of pleural effusion seen. No pneumothorax is identified. Bones and soft tissues: No significant findings. Degenerative changes in both shoulders. No displaced rib fracture deformity. IMPRESSION: 1. No acute cardiopulmonary disease is seen. Dictated by Kris Real MD @ 09/01/2017 6:29:29 PM Dictated by: Kris Real MD @ 09/01/2017 18:29:36 (Electronic Signature) Report Signed by Proxy. [facility]
--- NOTE | 2017-09-02 10:19 | CR ---
EXAM DATE: 09/01/17 PATIENT'S AGE: 87 Patient: SANTIAGO CANTU Facility: [place], [place] Site . Site : 1930 Study: XRay Knee Left [id number]/29/2017 5:50:22 PM Ordering Physician: Doctor Solano Final Report: INDICATION: Fall, pain at left hip TECHNIQUE: AP and lateral views of the left knee are submitted. COMPARISON: None. FINDINGS: Osteoarthritis in the left knee. Significant narrowing of the medial compartment of left knee. Mild spurring along the medial and lateral joint lines. Moderate spurring in the patellofemoral joint. No evidence for fracture or dislocation. No evidence for significant knee effusion. Arterial calcification. IMPRESSION: Tricompartmental osteoarthritis in the left knee, most advanced in the medial compartment. Dictated by Chava Grigsby MD @ 09/01/2017 6:36:32 PM Dictated by: Chava Grigsby MD @ 09/01/2017 18:36:40 (Electronic Signature) Report Signed by Proxy. [facility]
--- NOTE | 2017-09-02 10:26 | CT ---
EXAM DATE: 09/01/17 PATIENT'S AGE: 87 Patient: SANTIAGO CANTU Facility: [place], [place] Site . Site : 1930 Study: CT Abdomen/Pelvis [id number]/29/2017 7:22:20 PM Ordering Physician: Doctor Solano Final Report: HISTORY: Pain, confusion, fall. TECHNIQUE: The abdomen and pelvis were scanned using helical technique at 3 mm intervals without IV contrast. Reconstructed bone windows were obtained is sagittal and coronal constructions pain FINDINGS: Lung bases: There is some atelectasis or fibrosis is present in the lung bases. Heart appears upper limits of normal. Liver and gallbladder: The unenhanced liver is homogeneous. The 2.2 cm calcified gallstone is seen in the contracted gallbladder. Spleen, pancreas and adrenal glands: Unremarkable. Kidneys and bladder: No hydronephrosis. A 1.7 cm exophytic cyst is seen off the lower pole of the right kidney. The upper left kidney has a 3.4 cm cyst, a 2.5 cm parapelvic cyst and a 3.1 x 1.3 cm exophytic cyst lateral left kidney. The bladder is incompletely distended with mild wall thickening. Retroperitoneum and lymph nodes: Calcification in the wall of the aorta without aneurysm. No pathologic periaortic lymphadenopathy is seen. GI tract: Small hiatal hernia. The stomach is decompressed. There is some fluid seen in nondilated small bowel loops. The appendix is normal. Stool and gas are seen throughout the colon. No evidence of diverticulitis. There is no free air in the abdomen. There is no free fluid the pelvis. There is fat stranding seen along the left pelvic sidewall. Osseous structures: There is a nondisplaced fracture seen through the left superior pubic ramus extending to the left pubic bone. The femoral necks are intact. There is degenerative changes seen within both hips. There is degenerative changes seen within the SI joints. No sacral fracture is identified. There is extensive degenerative changes of discs and facets within the lumbar spine. There are mild compression fractures of L1 and T12. No acute fracture lines or paraspinous hematoma seen suggesting these are removed. A 6 mm well-circumscribed lucent bone lesion is seen within the left ischial tuberosity. No displaced rib fracture is seen. Pelvic organs: The prostate is generous. IMPRESSION: 1. Nearly nondisplaced fractures of the left superior pubic ramus and left pubic bone. There is some fat stranding seen along the left pelvic sidewall suggesting minimal blood or edema. No pelvic sidewall hematoma. 2. Bilateral renal cysts. 3. Cholelithiasis. 4. Hiatal hernia. 5. Mild T12 and L1 compression fractures. These may be remote as no acute fracture lines are paraspinous hematoma seen. 6. Mild bladder wall thickening. This may be a result of incomplete distention versus bladder outlet obstruction as the prostate is generous in size. Dictated by Anabella Franco MD @ 09/01/2017 7:57:22 PM Dictated by: Anabella Franco MD @ 09/01/2017 19:58:09 (Electronic Signature) Report Signed by Proxy. [facility]
[2017-09-02] MEDS: Acetaminophen 325 MG Tab PO PRN (14:50)
[2017-09-03] MEDS: Acetaminophen 325 MG Tab PO PRN ×3 (02:24→19:29)
[2017-09-03] MEDS: Haloperidol Lactate 5 MG/ML SDV IM PRN (02:33)
[2017-09-03] MEDS ORDERED: Bisacodyl 10 MG Supp RECTAL PRN (07:48)
[2017-09-03 08:03] LABS: CHLORIDE,CL 106 mmol/L (98-110); SODIUM,NA 139 mmol/L (136-146)
--- NOTE | 2017-09-03 08:44 | PCM.PN ---
- General Info Date of Service: 09/03/17 Admission Dx/Problem (Free Text): Admission Diagnosis/Problem Admission Diagnosis/Problem Anemia Subjective Update: Doing ok this morning. Received Ativan and Haldol overnight for some agitation, which helped. This morning he is alert, slightly drowsy but more talkative then yesterday. Denies chest pain or SOB and denies any hip pain. - Patient Data Vitals - Most Recent: Last Vital Signs Temp 98.1 F 09/03/17 07:51 Pulse 90 09/03/17 07:51 Resp 16 09/03/17 07:51 BP 109/59 L 09/03/17 07:51 Pulse Ox 90 L 09/03/17 07:51 Weight - Most Recent: 68.447 kg I&O - Last 24 Hours: Intake & Output 09/02/17 09/03/17 09/03/17 22:59 06:59 14:59 Intake Total 330 100 Output Total 751 120 Balance -421 -20 Lab Results Last 24 Hours: Laboratory Results - last 24 hr 09/02/17 09/02/17 09/03/17 Range/Units 05:24 05:24 07:21 WBC 7.27 (4.0-11.0) K/uL RBC 3.23 L 3.62 L (4.50-5.90) M/uL Hgb 10.8 L (13.0-17.0) g/dL Hct 33.7 L (38.0-50.0) % MCV 93.1 (80.0-98.0) fL MCH 29.8 (27.0-32.0) pg MCHC 32.0 (31.0-37.0) g/dL RDW Std Deviation 47.5 (28.0-62.0) fl RDW Coeff of [place] 14 (11.0-15.0) % Plt Count 242 (150-400) K/uL MPV 8.40 (7.40-12.00) fL Neut % (Auto) 76.0 (48.0-80.0) % Lymph % (Auto) 12.0 L (16.0-40.0) % [place] % (Auto) 10.0 (0.0-15.0) % Eos % (Auto) 1.7 (0.0-7.0) % Baso % (Auto) 0.3 (0.0-1.5) % Neut # (Auto) 5.5 (1.4-5.7) K/uL Lymph # (Auto) 0.9 (0.6-2.4) K/uL [place] # (Auto) 0.7 (0.0-0.8) K/uL Eos # (Auto) 0.1 (0.0-0.7) K/uL Baso # (Auto) 0.0 (0.0-0.1) K/uL Nucleated RBC % 0.0 /100WBC Nucleated RBCs # 0 K/uL Smear Path Review SENT TO PATHOLOGY Absolute Retic 50.70 (20-80) K/uL Percent Retic 1.6 H (0.5-1.5) % Immature Retic Fraction 16 % Sodium (136-146) mmol/L Potassium (3.5-5.1) mmol/L Chloride (98-110) mmol/L Carbon Dioxide (21-31) mmol/L BUN (6.0-23.0) mg/dL Creatinine (0.6-1.5) mg/dL Est Cr Clr Drug Dosing mL/min Estimated GFR (MDRD) ml/min Glucose (60-110) mg/dL Calcium (8.8-10.8) mg/dL Total Bilirubin (0.1-1.5) mg/dL AST (5-40) IU/L ALT (8-54) IU/L Alkaline Phosphatase (40-150) Total Protein (6.0-8.0) g/dL Albumin (3.4-4.8) g/dL Globulin (2.0-3.5) g/dL Albumin/Globulin Ratio (1.3-2.8) 09/03/17 Range/Units 07:21 WBC (4.0-11.0) K/uL RBC (4.50-5.90) M/uL Hgb (13.0-17.0) g/dL Hct (38.0-50.0) % MCV (80.0-98.0) fL MCH (27.0-32.0) pg MCHC (31.0-37.0) g/dL RDW Std Deviation (28.0-62.0) fl RDW Coeff of [place] (11.0-15.0) % Plt Count (150-400) K/uL MPV (7.40-12.00) fL Neut % (Auto) (48.0-80.0) % Lymph % (Auto) (16.0-40.0) % [place] % (Auto) (0.0-15.0) % Eos % (Auto) (0.0-7.0) % Baso % (Auto) (0.0-1.5) % Neut # (Auto) (1.4-5.7) K/uL Lymph # (Auto) (0.6-2.4) K/uL [place] # (Auto) (0.0-0.8) K/uL Eos # (Auto) (0.0-0.7) K/uL Baso # (Auto) (0.0-0.1) K/uL Nucleated RBC % /100WBC Nucleated RBCs # K/uL Smear Path Review Absolute Retic (20-80) K/uL Percent Retic (0.5-1.5) % Immature Retic Fraction % Sodium 139 (136-146) mmol/L Potassium 4.4 (3.5-5.1) mmol/L Chloride 106 (98-110) mmol/L Carbon Dioxide 25 (21-31) mmol/L BUN 16 (6.0-23.0) mg/dL Creatinine 1.0 (0.6-1.5) mg/dL Est Cr Clr Drug Dosing 45.19 mL/min Estimated GFR (MDRD) > 60.0 ml/min Glucose 102 (60-110) mg/dL Calcium 8.8 (8.8-10.8) mg/dL Total Bilirubin 1.3 (0.1-1.5) mg/dL AST 31 (5-40) IU/L ALT 18 (8-54) IU/L Alkaline Phosphatase 55 (40-150) Total Protein 7.0 (6.0-8.0) g/dL Albumin 3.2 L (3.4-4.8) g/dL Globulin 3.8 H (2.0-3.5) g/dL Albumin/Globulin Ratio 0.8 L (1.3-2.8) Med Orders - Current: Current Medications Acetaminophen (Tylenol) 650 mg PO Q4H PRN PRN Reason: Pain Last Admin: 09/03/17 02:24 Dose: 650 mg Albuterol (Proventil Neb Soln) 2.5 mg NEB Q2H PRN PRN Reason: Shortness Of Breath/wheezing Bisacodyl (Dulcolax) 10 mg RECTAL DAILY PRN PRN Reason: Constipation Haloperidol Lactate (Haldol) 1 mg IM Q8H PRN PRN Reason: Agitation Last Admin: 09/03/17 02:33 Dose: 1 mg Lorazepam (Ativan) 1 mg IVPUSH BEDTIME PRN PRN Reason: Insomnia Last Admin: 09/02/17 20:24 Dose: 1 mg Sodium Chloride (Saline Flush) 10 ml FLUSH ASDIRECTED PRN PRN Reason: Keep Vein Open Sodium Chloride (Saline Flush) 2.5 ml FLUSH ASDIRECTED PRN PRN Reason: Keep Vein Open Discontinued Medications Bacitracin (Bacitracin Oint 1 Gm) 1 dose TOP ONETIME ONE Stop: 09/01/17 18:09 Last Admin: 09/01/17 19:47 Dose: 1 dose Sodium Chloride (Normal Saline) 1,000 mls @ 150 mls/hr IV STAT ONE Stop: 09/01/17 22:15 Last Infusion: 09/01/17 22:22 Dose: 150 mls/hr Ketorolac Tromethamine (Toradol) 15 mg IVPUSH NOW STA Stop: 09/01/17 15:37 Last Admin: 09/01/17 16:05 Dose: Not Given Ketorolac Tromethamine (Toradol) 15 mg IVPUSH NOW STA Stop: 09/01/17 18:07 Last Admin: 09/01/17 18:11 Dose: 15 mg Lorazepam (Ativan) 1 mg IVPUSH Q4H PRN PRN Reason: Agitation Last Admin: 09/02/17 04:05 Dose: 1 mg Lorazepam (Ativan) 1 mg IVPUSH STAT ONE Stop: 09/01/17 21:38 Last Admin: 09/01/17 22:20 Dose: 1 mg Morphine Sulfate (Morphine) 2 mg IVPUSH Q2H PRN PRN Reason: Pain (severe 7-10) Stop: 09/02/17 21:12 Tramadol HCl (Ultram) 50 mg PO ONETIME ONE Stop: 09/01/17 15:48 Last Admin: 09/01/17 16:43 Dose: 50 mg - Exam General: Alert, Cooperative, No Acute Distress Lungs: Clear to Auscultation, Normal Respiratory Effort Cardiovascular: Regular Rate, Regular Rhythm GI/Abdominal Exam: Normal Bowel Sounds, Soft, Non-Tender, No Organomegaly, No Distention, No Abnormal Bruit, No Mass, Pelvis Stable Extremities: Normal Inspection, Normal Range of Motion, Non-Tender, No Pedal Edema, Normal Capillary Refill Skin: Other (bruising to all limbs noted. No worsening edema to L hip. ) Neurological: No New Focal Deficit Psy/Mental Status: Alert, Normal Affect, Normal Mood - Problem List & Annotations (1) Pubic ramus fracture SNOMED Code(s): 32832895 Code(s): S32.599A - OTH FRACTURE OF UNSP PUBIS, INIT ENCNTR FOR CLOSED FRACTURE Status: Acute Current Visit: Yes Qualifiers: Encounter type: initial encounter Fracture type: closed Laterality: left Qualified Code(s): S32.592A - Other specified fracture of left pubis, initial encounter for closed fracture (2) Acute delirium SNOMED Code(s): 8213502 Code(s): R41.0 - DISORIENTATION, UNSPECIFIED Status: Acute Current Visit : Yes (3) Anemia SNOMED Code(s): 778686730 Code(s): D64.9 - ANEMIA, UNSPECIFIED Status: Acute Current Visit: Yes Qualifiers: Anemia type: unspecified type Qualified Code(s): D64.9 - Anemia, unspecified (4) Falls frequently SNOMED Code(s): 476869115 Code(s): R29.6 - REPEATED FALLS Status: Acute Current Visit: Yes (5) Dementia SNOMED Code(s): 05702554 Code(s): F03.90 - UNSPECIFIED DEMENTIA WITHOUT BEHAVIORAL DISTURBANCE Status: Chronic Current Visit: Yes Qualifiers: Alzheimer's disease onset: other onset Dementia behavioral disturbance: without behavioral disturbance - Problem List Review Problem List Initiated/Reviewed/Updated: Yes - My Orders Last 24 Hours: My Active Orders 09/02/17 09:14 Haloperidol Lactate [Haldol] 1 mg IM Q8H PRN 09/02/17 09:15 Acetaminophen [Tylenol] 650 mg PO Q4H PRN 09/02/17 12:55 Encourage Fluids [OM.PC] Routine 09/03/17 07:48 Bisacodyl [Dulcolax] 10 mg RECTAL DAILY PRN - Plan Plan:: This 87 year old male admitted with pubic rami fracture, new anemia, frequent falls, and acute delirium 1. Pubic rami fracture: Non displaced. PT ordered, unable to evaluate yesterday due to his agitation, they will try again today. Pain medications PRN 2. New anemia: Hgb stable, 10.8 today. Will monitor daily. Iron studies pending. hemoccult negative. 3. Acute delirium: Stable, contnue to monitor. Haldol and Ativan ordered. Onset likely when he went to [place] with new surroundings and poor sleep habits. Frequent reorientation, limit interruptions, and orient to night and day times to assist with delirium. 4. Falls: PT as above when patient is able to follow commands VTE prophylaxis: Hold pharmacologic for now due to blood in pelvis. SCDs as he allows. Dispo: 1-2 days pending.
[2017-09-03] MEDS ORDERED: Sodium Chloride 0.9% 500 ML IV SCH (10:00)
[2017-09-03] MEDS: LORazepam 2 MG/ML SDV IVPUSH PRN (21:22)
--- NOTE | 2017-09-04 06:39 | PCM.DCSUM1 ---
Discharge Summary - Hospital Course HPI Initial Comments: 87 year old male with pmh of dementia [place]. Brief History: Daughter, Leana, who was at his bedside helped with patients history. Vitaliy had been placed in [place] 13 days before admission, because of his dementia and inability to completed ADLs. Leana reported since then his confusion had been worse and she doesn't feel like he is sleeping well at night due to a roommate issue. Also since his admission to [place] he has had many witness and unwitnessed falls. Yesterday he was noted to have fell because a new skin tear was noted to his L forearm and he started complaining of L hip pain and was unable to ambulate on his left leg. On day of admission he was disoriented, picking at the air, frequently attempting to get out of the bed or moving legs in attempt of this. He was easily settled but did not stay calm for long. He answered simple questions and denied pain, chest pain or trouble breathing. He takes no medications on a daily basis. Multiple bruises, of all healing stages noted to bilateral arms and legs. Newest appeared to be to the L hip, which was bright blue and purple with some noted edema underneath. L forearm sking tear was bandaged, old healing skin tear to R albow with bruising and scab intact. - Discharge Data Discharge Date: 09/04/17 Discharge Disposition: DC/Tfer to [facility] 03 Condition: Good - Patient Summary/Data Consults: Consultations 09/01/17 21:06 PT Evaluation and Treatment [CONS] Routine Hospital Course: In the ED, hgb 9.5, which from our records was down from 12.5 03/2017. We obtained records from Dr Raygoza, on 08/19/2017 hgb 11.2. Na 134, Ua negative. VS stable. Head CT no acute findings, age related changes with atrophy and chronic ischemic changes. L ankle xray negative for fractures. CT cervical spine, revealed mild compression of C7 vertebral body which appeared non-acute, if clinical concern follow with MRI. He had no complaints of parathesia or neck pain. CXR negative. L knee xray revealed osteoarthritis, no acute fractures. L hip xray revealed apparent contour irregularity of R sacral border, linear calcific densities projecting over the left pubis correlate with CT. CT of abd/ pelvis revealed non-displaced fracture seen through the left superior pubic ramus extending to the left pubic bone. Femoral necks intact. There was some fat stranding seen along the left pelvic sidewall suggesting minimal blood or edema but no pelvic sidewall hematoma. Mild bladder wall thickening, possible incomplete distension vs bladder outlet obstruction as prostate was generous in size. Patient was admitted for fall, non displaced pubic ramus fracture and acute delirium. His pubic rami fracture was nondisplaced and PT evaluate the treated the patient with increasing ability to sit, stand, and eat on his own with minimal help. His new anemia was thought to most likely be due to falls secondary probable blood seen in the pelvis. Hgb remained stable throughout his stay and hemoccult was negative. His recent acute delirium was most likely onset from vein in [place] surroundings [place] with poor sleep habits. Patient did receive Ativan 2 mg during first night of stay and seemed more delirious so Haldol was started for his agitation. On second night he was given 1 mg of Ativan at bedtime and responded well to next morning. On second day of admission patient showed markedly improved orientation with less agitation. He benefited greatly from frequent reorientation, limited interruptions, and orientation tonight an day. - Patient Instructions Diet: Regular Diet as Tolerated (thin consistency), Drink 8-10+ Glasses/Day Activity: As Tolerated, Full Weight Bearing Showering/Bathing: May Shower Notify Provider of: Fever, Increased Pain, Swelling and Redness, Drainage, Nausea and/or Vomiting Other/Special Instructions: PT/OT/ST to evaluate and treat - Discharge Plan Prescriptions/Med Rec: Acetaminophen [Tylenol] 650 mg PO Q4H PRN #30 tablet PRN Reason: Pain Bisacodyl [Dulcolax] 10 mg RECTAL DAILY PRN #10 supp PRN Reason: Constipation Home Medications: Home Meds Acetaminophen [Tylenol] 650 mg PO Q4H PRN #30 tablet 09/03/17 [Rx] Bisacodyl [Dulcolax] 10 mg RECTAL DAILY PRN #10 supp 09/03/17 [Rx] Patient Handouts: Bisacodyl suppositories, Acetaminophen tablets or caplets, Dementia, [id number] Referrals: Emmanuel Raygoza MD [Primary Care Provider] - (follow at next [facility] rounds) - Discharge Summary/Plan Comment DC Time >30 min.: Yes Discharge Summary/Plan Comment: 87 year old male with pmh of dementia [place] a [place]. Daughter, Leana, who was at his bedside helped with patients history. Vitaliy had been placed in [place] 13 days before admission, because of his dementia and inability to completed ADLs. Leana reported since then his confusion had been worse and she doesn't feel like he is sleeping well at night due to a roommate issue. Also since his admission [place] he has had many witness and unwitnessed falls. Yesterday he was noted to have fell because a new skin tear was noted to his L forearm and he started complaining of L hip pain and was unable to ambulate on his left leg. On day of admission he was disoriented, picking at the air, frequently attempting to get out of the bed or moving legs in attempt of this. He was easily settled but did not stay calm for long. He answered simple questions and denied pain, chest pain or trouble breathing. He takes no medications on a daily basis. Multiple bruises, of all healing stages noted to bilateral arms and legs. Newest appeared to be to the L hip, which was bright blue and purple with some noted edema underneath. L forearm sking tear was bandaged, old healing skin tear to R albow with bruising and scab intact. In the ED, hgb 9.5, which from our records was down from 12.5 03/2017. We obtained records from Dr Raygoza, on 08/19/2017 hgb 11.2. Na 134, Ua negative. VS stable. Head CT no acute findings, age related changes with atrophy and chronic ischemic changes. L ankle xray negative for fractures. CT cervical spine, revealed mild compression of C7 vertebral body which appeared non-acute, if clinical concern follow with MRI. He had no complaints of parathesia or neck pain. CXR negative. L knee xray revealed osteoarthritis, no acute fractures. L hip xray revealed apparent contour irregularity of R sacral border, linear calcific densities projecting over the left pubis correlate with CT. CT of abd/ pelvis revealed non-displaced fracture seen through the left superior pubic ramus extending to the left pubic bone. Femoral necks intact. There was some fat stranding seen along the left pelvic sidewall suggesting minimal blood or edema but no pelvic sidewall hematoma. Mild bladder wall thickening, possible incomplete distension vs bladder outlet obstruction as prostate was generous in size. Patient was admitted for fall, non displaced pubic ramus fracture and acute delirium. His pubic rami fracture was nondisplaced and PT evaluate the treated the patient with increasing ability to sit, stand, and eat on his own with minimal help. His new anemia was thought to most likely be due to falls secondary probable blood seen in the pelvis. Hgb remained stable throughout his stay and hemoccult was negative. His recent acute delirium was most likely onset from vein in [place] with poor sleep habits. Patient did receive Ativan 2 mg during first night of stay and seemed more delirious so Haldol was started for his agitation. On second night he was given 1 mg of Ativan at bedtime and responded well to next morning. On second day of admission patient showed markedly improved orientation with less agitation. He benefited greatly from frequent reorientation, limited interruptions, and orientation tonight an day. On day of discharge patient continued to do well and required only acetaminophen for pain control. I would recommend against agressive narcotic use. He was taking oral pills without difficulty while in house. Dr. Raygoza, PCP, was called and updated on patients status and pending discharge. - General Info Date of Service: 09/04/17 Admission Dx/Problem (Free Text: Admission Diagnosis/Problem Admission Diagnosis/Problem Anemia Subjective Update: Reporting no pain this morning is still disorientated but baseline from yesterdays improvement. Does follow directions and is pleasant. Ate good last evening with some assistance up in charge. Had bowel movement yesterday as well. Functional Status: Reports: Pain Controlled - Review of Systems General: Denies: Fever HEENT: Denies: Dysphasia, Headaches, Visual Changes Pulmonary: Denies: Shortness of Breath, Pleuritic Chest Pain Cardiovascular: Denies: Chest Pain, Edema Gastrointestinal: Denies: Abdominal Pain Genitourinary: Denies: Dysuria Musculoskeletal: Denies: Neck Pain, Leg Pain Skin: Denies: Cyanosis Neurological: Denies: Confusion, Dizziness, Headache Psychiatric: Denies: Confusion - Patient Data Vitals - Most Recent: Last Vital Signs Temp 98.7 F 09/03/17 23:00 Pulse 101 H 09/03/17 23:00 Resp 16 09/03/17 23:00 BP 122/72 09/03/17 23:00 Pulse Ox 92 L 09/03/17 23:00 Weight - Most Recent: 68.447 kg I&O - Last 24 hours: Intake & Output 09/03/17 09/03/17 09/04/17 14:59 22:59 06:59 Intake Total 925 250 Output Total 533 572 Balance 392 -322 Lab Results - Last 24 hrs: Laboratory Results - last 24 hr 09/03/17 09/03/17 Range/Units 07:21 07:21 WBC 7.27 (4.0-11.0) K/uL RBC 3.62 L (4.50-5.90) M/uL Hgb 10.8 L (13.0-17.0) g/dL Hct 33.7 L (38.0-50.0) % MCV 93.1 (80.0-98.0) fL MCH 29.8 (27.0-32.0) pg MCHC 32.0 (31.0-37.0) g/dL RDW Std Deviation 47.5 (28.0-62.0) fl RDW Coeff of [place] 14 (11.0-15.0) % Plt Count 242 (150-400) K/uL MPV 8.40 (7.40-12.00) fL Neut % (Auto) 76.0 (48.0-80.0) % Lymph % (Auto) 12.0 L (16.0-40.0) % [place] % (Auto) 10.0 (0.0-15.0) % Eos % (Auto) 1.7 (0.0-7.0) % Baso % (Auto) 0.3 (0.0-1.5) % Neut # (Auto) 5.5 (1.4-5.7) K/uL Lymph # (Auto) 0.9 (0.6-2.4) K/uL [place] # (Auto) 0.7 (0.0-0.8) K/uL Eos # (Auto) 0.1 (0.0-0.7) K/uL Baso # (Auto) 0.0 (0.0-0.1) K/uL Nucleated RBC % 0.0 /100WBC Nucleated RBCs # 0 K/uL Sodium 139 (136-146) mmol/L Potassium 4.4 (3.5-5.1) mmol/L Chloride 106 (98-110) mmol/L Carbon Dioxide 25 (21-31) mmol/L BUN 16 (6.0-23.0) mg/dL Creatinine 1.0 (0.6-1.5) mg/dL Est Cr Clr Drug Dosing 45.19 mL/min Estimated GFR (MDRD) > 60.0 ml/min Glucose 102 (60-110) mg/dL Calcium 8.8 (8.8-10.8) mg/dL Total Bilirubin 1.3 (0.1-1.5) mg/dL AST 31 (5-40) IU/L ALT 18 (8-54) IU/L Alkaline Phosphatase 55 (40-150) Total Protein 7.0 (6.0-8.0) g/dL Albumin 3.2 L (3.4-4.8) g/dL Globulin 3.8 H (2.0-3.5) g/dL Albumin/Globulin Ratio 0.8 L (1.3-2.8) Med Orders - Current: Current Medications Acetaminophen (Tylenol) 650 mg PO Q4H PRN PRN Reason: Pain Last Admin: 09/03/17 19:29 Dose: 650 mg Albuterol (Proventil Neb Soln) 2.5 mg NEB Q2H PRN PRN Reason: Shortness Of Breath/wheezing Bisacodyl (Dulcolax) 10 mg RECTAL DAILY PRN PRN Reason: Constipation Last Admin: 09/03/17 08:44 Dose: 10 mg Haloperidol Lactate (Haldol) 1 mg IM Q8H PRN PRN Reason: Agitation Last Admin: 09/03/17 02:33 Dose: 1 mg Lorazepam (Ativan) 1 mg IVPUSH BEDTIME PRN PRN Reason: Insomnia Last Admin: 09/03/17 21:22 Dose: 1 mg Sodium Chloride (Saline Flush) 10 ml FLUSH ASDIRECTED PRN PRN Reason: Keep Vein Open Sodium Chloride (Saline Flush) 2.5 ml FLUSH ASDIRECTED PRN PRN Reason: Keep Vein Open Discontinued Medications Bacitracin (Bacitracin Oint 1 Gm) 1 dose TOP ONETIME ONE Stop: 09/01/17 18:09 Last Admin: 09/01/17 19:47 Dose: 1 dose Sodium Chloride (Normal Saline) 1,000 mls @ 150 mls/hr IV STAT ONE Stop: 09/01/17 22:15 Last Infusion: 09/01/17 22:22 Dose: 150 mls/hr Sodium Chloride (Normal Saline) 500 mls @ 125 mls/hr IV ASDIRECTED SIMBA Stop: 09/03/17 13:59 Last Admin: 09/03/17 10:23 Dose: 125 mls/hr Ketorolac Tromethamine (Toradol) 15 mg IVPUSH NOW STA Stop: 09/01/17 15:37 Last Admin: 09/01/17 16:05 Dose: Not Given Ketorolac Tromethamine (Toradol) 15 mg IVPUSH NOW STA Stop: 09/01/17 18:07 Last Admin: 09/01/17 18:11 Dose: 15 mg Lorazepam (Ativan) 1 mg IVPUSH Q4H PRN PRN Reason: Agitation Last Admin: 09/02/17 04:05 Dose: 1 mg Lorazepam (Ativan) 1 mg IVPUSH STAT ONE Stop: 09/01/17 21:38 Last Admin: 09/01/17 22:20 Dose: 1 mg Morphine Sulfate (Morphine) 2 mg IVPUSH Q2H PRN PRN Reason: Pain (severe 7-10) Stop: 09/02/17 21:12 Tramadol HCl (Ultram) 50 mg PO ONETIME ONE Stop: 09/01/17 15:48 Last Admin: 09/01/17 16:43 Dose: 50 mg - Exam Quality Assessment: Reports: DVT Prophylaxis General: Reports: Alert, Cooperative, No Acute Distress HEENT: Reports: Pupils Equal, Pupils Reactive, EOMI, Mucous Membr. Moist/[place] Neck: Reports: Supple Lungs: Reports: Clear to Auscultation, Normal Respiratory Effort Cardiovascular: Reports: Regular Rate, Regular Rhythm, Murmurs GI/Abdominal Exam: Normal Bowel Sounds, Soft, Non-Tender, No Organomegaly, No Distention Extremities: Non-Tender, No Pedal Edema, Normal Capillary Refill Skin: Reports: Warm, Dry, Intact Wound/Incisions: Reports: Healing Well Psy/Mental Status: Reports: Alert, Agitated *Q Meaningful Use (DIS) - VTE *Q VTE Criteria *Q: - Stroke *Q Stroke Criteria *Q: - AMI *Q AMI Criteria *Q:
[2017-09-04 08:34] VITALS: BP 119/70
[2017-09-04] MEDS: Acetaminophen 325 MG Tab PO PRN (10:10)
== END 2017-09-04 10:47 | DRG 605 ==
LOC: MW.ED 15:11 → MW.MS 20:10
PROVIDERS: ADMIT Internal Medicine; ATTEND Internal Medicine
DX: S32.502A Unspecified fracture of left pubis, initial encounter for closed fracture (principal); W18.30XA Fall on same level, unspecified, initial encounter; Y92.129 Unspecified place in nursing home as the place of occurrence of the external cause; S70.02XA Contusion of left hip, initial encounter; F05 Delirium due to known physiological condition; N28.1 Cyst of kidney, acquired; K80.20 Calculus of gallbladder without cholecystitis without obstruction; K44.9 Diaphragmatic hernia without obstruction or gangrene; Z91.81 History of falling; S40.022A Contusion of left upper arm, initial encounter; S40.021A Contusion of right upper arm, initial encounter; S80.12XA Contusion of left lower leg, initial encounter; S80.11XA Contusion of right lower leg, initial encounter; R45.1 Restlessness and agitation; F03.90 Unspecified dementia, unspecified severity, without behavioral disturbance, psychotic disturbance, mood disturbance, and anxiety; R29.6 Repeated falls; D64.9 Anemia, unspecified; N32.89 Other specified disorders of bladder
CPT/HCPCS: 36415; 70450; 71010; 72125; 73501; 73560; 73610; 74176; 80053; 81001; 82550; 84484; 85025; 93005; 96361; 96374; 99285; A9270; J1885; J7040; 85045; 88104; 97162-GP; 99284; J1630; J2060

== ENCOUNTER 2018-02-04 21:27 | Inpatient (IN) | payer MEDICARE ==
--- NOTE | 2018-02-04 21:46 | EDM.PDOC ---
<Hilton Fontenot E - Last Filed: 02/04/18 21:49> ED HPI GENERAL MEDICAL PROBLEM - General Stated Complaint: UNK Time Seen by Provider: 02/04/18 21:38 Source of Information: Reports: Patient History Limitations: Reports: No Limitations - History of Present Illness INITIAL COMMENTS - FREE TEXT/NARRATIVE: HISTORY AND PHYSICAL: History of present illness: Patient is an 87-year-old male who presents to the emergency room from [employer] via bus with complaints of fever, right elbow drainage/erythema and swelling. Nursing staff states that Dr. Emmanuel Raygoza had done rounds today and prescribed topical antibiotic ointment 4 this infection. He has been since running a temperature, last reported of 102.3F. they have been giving Tylenol directed. They also mention concerned that he has not been eating and drinking as much as usual. Patient has a past medical history of chronic kidney disease, osteoarthritis, anemia, dementia with Lewy bodies, and hypertension Patient is a code level III Review of systems: As per history of present illness and below otherwise all systems reviewed and negative. Past medical history: As per history of present illness and as reviewed below otherwise noncontributory. Surgical history: As per history of present illness and as reviewed below otherwise noncontributory. Social history: No reported history of drug or alcohol abuse. Family history: As per history of present illness and as reviewed below otherwise noncontributory. Physical exam: General: Alert and pleasantly disoriented 87-year-old male. Nontoxic appearing and in no acute distress. HEENT: Atraumatic, normocephalic, pupils equal and reactive bilaterally, negative for conjunctival pallor or scleral icterus, mucous membranes moist, throat clear, neck supple, nontender, trachea midline. No drooling or trismus noted. No meningeal signs Lungs: Diminished, poor air exchange, breath sounds equal bilaterally, chest nontender. Heart: Heart murmur, regular rate and rhythm Abdomen: Soft, nondistended, nontender. Negative for masses or hepatosplenomegaly. Negative for costovertebral tenderness. Pelvis: Stable nontender. Genitourinary: Deferred. Rectal: Deferred. Skin: Skin tear noted to right elbow along with erythema surrounding the prominence. There are 2 areas that appear to have had draining yellow purulent drainage, currently dried over extraction sites. Appears to have an olecron bursitis (right), warm to touch. No lesions or rashes noted. Extremities: Atraumatic, negative for cords or calf pain. Neurovascular unremarkable. Neuro: Awake, alert, oriented. Cranial nerves II through XII unremarkable. Cerebellum unremarkable. Motor and sensory unremarkable throughout. Exam nonfocal. Notes: Family at the bedside states that the patient has "declined rapidly" over the past weeks to months. Patient was diagnosed with Alzheimer's and recently has been informed he has Lewy bodies dementia. They have noted an overall decline in his health and he has had frequent falls. 2200: Orders have been entered. Dr Hinds is aware of this case and is taking over care at this time. Diagnostics: CBC, CMP, troponin, INR, EKG, chest x-ray, elbow x-ray, blood culture, BNP, CK, UA Therapeutics: Saline lock Impression: Fever Plan: [] Definitive disposition and diagnosis as appropriate pending reevaluation and review of above. - Related Data Allergies Allergy/AdvReac Type Severity Reaction Status Date / Time No Known Allergies Allergy Verified 09/01/17 15:23 Home Meds: Home Meds Acetaminophen [Tylenol] 650 mg PO Q4H PRN #30 tablet 09/03/17 [Rx] Donepezil HCl [Aricept] 1 tab PO BEDTIME 02/04/18 [History] LORazepam [Ativan] 1 tab PO TID PRN 02/04/18 [History] Levothyroxine [Synthroid] 1 tab PO DAILY 02/04/18 [History] Melatonin 1 tab PO BEDTIME PRN 02/04/18 [History] OLANZapine [ZyPREXA] 10 mg PO BEDTIME 02/04/18 [History] Polyethylene Glycol 3350 [MiraLAX] 17 gr PO ASDIRECTED 02/04/18 [History] Past Medical History - Past Health History Medical/Surgical History: Denies Medical/Surgical History HEENT History: Reports: Cataract Cardiovascular History: Reports: None. Denies: Afib, Blood Clots/VTE/DVT, High Cholesterol, Hypertension, CO Respiratory History: Reports: None. Denies: COPD, PE Gastrointestinal History: Reports: None. Denies: GI Bleed Genitourinary History: Reports: None Musculoskeletal History: Reports: Arthritis, Osteoarthritis Neurological History: Reports: Other (See Below) (dementia, wanders) Psychiatric History: Reports: Dementia Endocrine/Metabolic History: Reports: None. Denies: Diabetes, Type II, Obesity/ BMI 30+ Hematologic History: Reports: None Immunologic History: Reports: None Oncologic (Cancer) History: Reports: None Dermatologic History: Reports: None - Infectious Disease History Infectious Disease History: Reports: None - Past Surgical History Head Surgeries/Procedures: Reports: None HEENT Surgical History: Reports: Cataract Surgery Cardiovascular Surgical History: Reports: None Respiratory Surgical History: Reports: None GI Surgical History: Reports: None Male Surgical History: Reports: None Endocrine Surgical History: Reports: None Neurological Surgical History: Reports: None Dermatological Surgical History: Reports: None Social & Family History - Family History Family Medical History: Noncontributory Cardiac: Reports: Heart Failure, Hypertension Respiratory: Reports: None - Tobacco Use Smoking Status *Q: Never Smoker Second Hand Smoke Exposure: No - Caffeine Use Caffeine Use: Reports: Coffee - Recreational Drug Use Recreational Drug Use: No ED ROS GENERAL - Review of Systems Review Of Systems: ROS reveals no pertinent complaints other than HPI. ED EXAM, GENERAL - Physical Exam Exam: See Below (See dictation) Course - Vital Signs Last Recorded V/S: Last Vital Signs Temp 100.1 F 02/04/18 21:27 Pulse 80 02/04/18 23:55 Resp 18 02/04/18 23:55 BP 113/59 L 02/04/18 23:55 Pulse Ox 96 02/04/18 23:55 - Orders/Labs/Meds Orders: Active Orders 24 hr Category Date Time Status EKG Documentation Completion [RC] STAT Care 02/04/18 21:33 Active Chest 1V Frontal [CR] Stat Exams 02/04/18 21:33 Taken Elbow Min 3V Rt [CR] Stat Exams 02/04/18 21:44 Taken CULTURE BLOOD [BC] Stat Lab 02/04/18 21:47 Received CULTURE BLOOD [BC] Stat Lab 02/04/18 21:58 Received CULTURE URINE [RM] Stat Lab 02/04/18 23:26 Received INFLUENZA A+B AG SCREEN [RM] Stat Lab 02/04/18 23:26 Ordered UA W/MICROSCOPIC [URIN] Stat Lab 02/04/18 23:26 Ordered Sodium Chloride 0.9% [Normal Saline] 1,000 ml Med 02/04/18 22:30 Active IV STAT Vancomycin [Vancocin] 1 gm Med 02/04/18 23:42 Active Sodium Chloride 0.9% [Normal Saline] 250 ml IV ONETIME Blood Culture x2 Reflex Set [OM.PC] Stat Oth 02/04/18 21:38 Ordered Medication Orders Sodium Chloride (Normal Saline) 1,000 mls @ 125 mls/hr IV STAT [facility] Last Admin: 02/04/18 22:29 Dose: 125 mls/hr Vancomycin HCl 1 gm/ Sodium (Chloride) 250 mls @ 250 mls/hr IV ONETIME ONE Stop: 02/05/18 00:41 Last Admin: 02/05/18 00:10 Dose: 250 mls/hr Labs: Laboratory Tests 02/04/18 02/04/18 02/04/18 Range/Units 21:47 21:47 21:47 WBC 9.80 (4.0-11.0) K/uL RBC 3.21 L (4.50-5.90) M/uL Hgb 9.4 L (13.0-17.0) g/dL Hct 30.1 L (38.0-50.0) % MCV 93.8 (80.0-98.0) fL MCH 29.3 (27.0-32.0) pg MCHC 31.2 (31.0-37.0) g/dL RDW Std Deviation 55.8 (28.0-62.0) fl RDW Coeff of Francisco 16 H (11.0-15.0) % Plt Count 252 (150-400) K/uL MPV 8.50 (7.40-12.00) fL Neut % (Auto) 71.9 (48.0-80.0) % Lymph % (Auto) 16.0 (16.0-40.0) % [place] % (Auto) 10.4 (0.0-15.0) % Eos % (Auto) 1.5 (0.0-7.0) % Baso % (Auto) 0.2 (0.0-1.5) % Neut # (Auto) 7.0 H (1.4-5.7) K/uL Lymph # (Auto) 1.6 (0.6-2.4) K/uL [place] # (Auto) 1.0 H (0.0-0.8) K/uL Eos # (Auto) 0.2 (0.0-0.7) K/uL Baso # (Auto) 0.0 (0.0-0.1) K/uL Nucleated RBC % 0.0 /100WBC Nucleated RBCs # 0 K/uL INR 1.04 Lactate (0.20-2.00) mmol/L Sodium 143 (136-148) mmol/L Potassium 3.5 (3.5-5.1) mmol/L Chloride 109 H (98-107) mmol/L Carbon Dioxide 24.9 (21.0-32.0) mmol/L BUN 23 H (7.0-18.0) mg/dL Creatinine 1.3 (0.8-1.3) mg/dL Est Cr Clr Drug Dosing TNP Estimated GFR (MDRD) 52.0 ml/min Glucose 124 H (74-106) mg/dL Calcium 8.4 L (8.5-10.1) mg/dL Total Bilirubin 0.5 (0.2-1.0) mg/dL AST 21 (15-37) IU/L ALT 22 (14-63) IU/L Alkaline Phosphatase 66 (46-116) U/L Creatine Kinase 226 (26-308) U/L CK-MB (CK-2) 1.6 (0-3.6) ng/mL Troponin I 0.063 H* (0.000-0.056) ng/mL B-Natriuretic Peptide (<100) PG/ML Total Protein 7.5 (6.4-8.2) g/dL Albumin 3.0 L (3.4-5.0) g/dL Globulin 4.5 H (2.0-3.5) g/dL Albumin/Globulin Ratio 0.7 L (1.3-2.8) Urine Color Urine Appearance Urine pH (5.0-8.0) Ur Specific [place] (1.001-1.035) Urine Protein (NEGATIVE) mg/dL Urine Glucose (UA) (NEGATIVE) mg/dL Urine Ketones (NEGATIVE) mg/dL Urine Occult Blood (NEGATIVE) Urine Nitrite (NEGATIVE) Urine Bilirubin (NEGATIVE) Urine Ictotest Urine Urobilinogen (<2.0) EU/dL Ur Leukocyte Esterase (NEGATIVE) Urine RBC (0-2/HPF) Urine WBC (0-5/HPF) Ur Epithelial Cells (NONE-FEW) Urine Bacteria (NEGATIVE) 02/04/18 02/04/18 02/04/18 Range/Units 21:47 21:47 23:26 WBC (4.0-11.0) K/uL RBC (4.50-5.90) M/uL Hgb (13.0-17.0) g/dL Hct (38.0-50.0) % MCV (80.0-98.0) fL MCH (27.0-32.0) pg MCHC (31.0-37.0) g/dL RDW Std Deviation (28.0-62.0) fl RDW Coeff of Francisco (11.0-15.0) % Plt Count (150-400) K/uL MPV (7.40-12.00) fL Neut % (Auto) (48.0-80.0) % Lymph % (Auto) (16.0-40.0) % [place] % (Auto) (0.0-15.0) % Eos % (Auto) (0.0-7.0) % Baso % (Auto) (0.0-1.5) % Neut # (Auto) (1.4-5.7) K/uL Lymph # (Auto) (0.6-2.4) K/uL [place] # (Auto) (0.0-0.8) K/uL Eos # (Auto) (0.0-0.7) K/uL Baso # (Auto) (0.0-0.1) K/uL Nucleated RBC % /100WBC Nucleated RBCs # K/uL INR Lactate 1.0 (0.20-2.00) mmol/L Sodium (136-148) mmol/L Potassium (3.5-5.1) mmol/L Chloride (98-107) mmol/L Carbon Dioxide (21.0-32.0) mmol/L BUN (7.0-18.0) mg/dL Creatinine (0.8-1.3) mg/dL Est Cr Clr Drug Dosing Estimated GFR (MDRD) ml/min Glucose (74-106) mg/dL Calcium (8.5-10.1) mg/dL Total Bilirubin (0.2-1.0) mg/dL AST (15-37) IU/L ALT (14-63) IU/L Alkaline Phosphatase (46-116) U/L Creatine Kinase (26-308) U/L CK-MB (CK-2) (0-3.6) ng/mL Troponin I (0.000-0.056) ng/mL B-Natriuretic Peptide 187 H (<100) PG/ML Total Protein (6.4-8.2) g/dL Albumin (3.4-5.0) g/dL Globulin (2.0-3.5) g/dL Albumin/Globulin Ratio (1.3-2.8) Urine Color YELLOW Urine Appearance CLEAR Urine pH 5.5 (5.0-8.0) Ur Specific [place] 1.025 (1.001-1.035) Urine Protein NEGATIVE (NEGATIVE) mg/dL Urine Glucose (UA) NEGATIVE (NEGATIVE) mg/dL Urine Ketones NEGATIVE (NEGATIVE) mg/dL Urine Occult Blood NEGATIVE (NEGATIVE) Urine Nitrite NEGATIVE (NEGATIVE) Urine Bilirubin SMALL H (NEGATIVE) Urine Ictotest NEGATIVE Urine Urobilinogen 0.2 (<2.0) EU/dL Ur Leukocyte Esterase NEGATIVE (NEGATIVE) Urine RBC 0-2 (0-2/HPF) Urine WBC 0-1 (0-5/HPF) Ur Epithelial Cells RARE (NONE-FEW) Urine Bacteria FEW (NEGATIVE) Meds: Medications Generic Name Dose Route Start Last Admin Trade Name Freq PRN Reason Stop Dose Admin Sodium Chloride 1,000 mls @ 125 mls/hr 02/04/18 22:30 02/04/18 22:29 Normal Saline IV 125 mls/hr STAT SIMBA Administration Vancomycin HCl 1 gm/ Sodium 250 mls @ 250 mls/hr 02/04/18 23:42 02/05/18 00: 10 Chloride IV 02/05/18 00:41 250 mls/hr ONETIME ONE Administration Discontinued Medications Generic Name Dose Route Start Last Admin Trade Name Freq PRN Reason Stop Dose Admin Aspirin 324 mg 02/04/18 23:00 02/05/18 00:10 Aspirin PO 02/04/18 23:01 324 mg ONETIME ONE Administration Piperacillin Sod/Tazobactam 50 mls @ 100 mls/hr 02/04/18 23:43 Sod 3.375 gm/ Sodium Chloride IV 02/05/18 00:12 ONETIME ONE Departure - Departure Disposition: Admitted As Inpatient 64 Clinical Impression: Cellulitis, Fever - Discharge Information Referrals: PCP,None [Primary Care Provider] - - My Orders Last 24 Hours: My Active Orders 02/04/18 21:33 EKG Documentation Completion [RC] STAT Chest 1V Frontal [CR] Stat 02/04/18 21:38 Blood Culture x2 Reflex Set [OM.PC] Stat 02/04/18 21:44 Elbow Min 3V Rt [CR] Stat 02/04/18 21:47 CULTURE BLOOD [BC] Stat 02/04/18 21:58 CULTURE BLOOD [BC] Stat 02/04/18 22:30 Sodium Chloride 0.9% [Normal Saline] 1,000 ml IV STAT 02/04/18 23:26 CULTURE URINE [RM] Stat INFLUENZA A+B AG SCREEN [RM] Stat UA W/MICROSCOPIC [URIN] Stat 02/04/18 23:42 Vancomycin [Vancocin] 1 gm Sodium Chloride 0.9% [Normal Saline] 250 ml IV ONETIME - Assessment/Plan Last 24 Hours: My Active Orders 02/04/18 21:33 EKG Documentation Completion [RC] STAT Chest 1V Frontal [CR] Stat 02/04/18 21:38 Blood Culture x2 Reflex Set [OM.PC] Stat 02/04/18 21:44 Elbow Min 3V Rt [CR] Stat 02/04/18 21:47 CULTURE BLOOD [BC] Stat 02/04/18 21:58 CULTURE BLOOD [BC] Stat 02/04/18 22:30 Sodium Chloride 0.9% [Normal Saline] 1,000 ml IV STAT 02/04/18 23:26 CULTURE URINE [RM] Stat INFLUENZA A+B AG SCREEN [RM] Stat UA W/MICROSCOPIC [URIN] Stat 02/04/18 23:42 Vancomycin [Vancocin] 1 gm Sodium Chloride 0.9% [Normal Saline] 250 ml IV ONETIME <Chad Mondragon - Last Filed: 02/05/18 00:37> ED HPI GENERAL MEDICAL PROBLEM - History of Present Illness INITIAL COMMENTS - FREE TEXT/NARRATIVE: Patient presents with a cellulitis over his right elbow we asked Kris history and some skin tears there is a clear olecranon bursitis apparently there is been some serosanguineous drainage from the site reported by [facility], currently there is no drainage for culture Gen. 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
[2018-02-04] MEDS: Sodium Chloride 0.9% 1,000 ML IV SCH (22:29)
[2018-02-04 22:40] LABS: CHLORIDE,CL 109 mmol/L (98-107); SODIUM,NA 143 mmol/L (136-148)
[2018-02-04] MEDS ORDERED: Aspirin 81 MG Tab.Chew PO ONE (23:00)
[2018-02-04] MEDS ORDERED: Piperacillin/Tazobactam 3.375 GM in Sodium Chloride 0.9% 50 ML IV ONE (23:43)
[2018-02-05] MEDS ORDERED: Haloperidol Lactate 5 MG/ML SDV IM PRN (02:02)
[2018-02-05] MEDS ORDERED: Sodium Chloride 0.9% 1,000 ML IV SCH (02:15)
[2018-02-05] MEDS: Sodium Chloride 0.9% 1,000 ML IV SCH ×3 (05:30→23:52)
[2018-02-05] MEDS: Piperacillin/Tazobactam 3.375 GM in Sodium Chloride 0.9% 50 ML IV SCH ×3 (08:00→20:12)
[2018-02-05] MEDS ORDERED: LORazepam 0.5 MG Tab PO PRN (13:43)
[2018-02-05] MEDS ORDERED: Melatonin 3 MG Tab PO PRN (13:43)
--- NOTE | 2018-02-05 13:51 | PCM.HP ---
H&P History of Present Illness - General Admit Problem/Dx: Admission Diagnosis/Problem Admission Diagnosis/Problem Cellulitis - History of Present Illness Initial Comments - Free Text/Narative: 87 yo male with pmh of lewy body dementia who has had multiple falls leading to skin tears on his right elbow. He was brougt to the ER due to edema and redness of his elbow. He is able to move his elbow freely. - Related Data Allergies/Adverse Reactions: Allergies Allergy/AdvReac Type Severity Reaction Status Date / Time No Known Allergies Allergy Verified 09/01/17 15:23 Home Medications: Home Meds Acetaminophen [Tylenol] 650 mg PO Q4H PRN #30 tablet 09/03/17 [Rx] Donepezil HCl [Aricept] 1 tab PO BEDTIME 02/04/18 [History] LORazepam [Ativan] 0.5 mg PO TID PRN 02/04/18 [History] Levothyroxine [Synthroid] 50 mcg PO DAILY 02/04/18 [History] Melatonin 5 mg PO BEDTIME PRN 02/04/18 [History] OLANZapine [ZyPREXA] 10 mg PO BEDTIME 02/04/18 [History] Polyethylene Glycol 3350 [MiraLAX] 17 gr PO ASDIRECTED 02/04/18 [History] Acetaminophen [Tylenol] 650 mg PO BEDTIME 02/05/18 [History] Acetaminophen [Tylenol] 650 mg PO DAILY 02/05/18 [History] Past Medical History - Past Health History Medical/Surgical History: Denies Medical/Surgical History HEENT History: Reports: Cataract Other HEENT History: dysphagia Cardiovascular History: Reports: None Other Cardiovascular History: Carotid artery stenosis Respiratory History: Reports: None Gastrointestinal History: Reports: None Genitourinary History: Reports: None Other Genitourinary History: hematuria; frequency of micturation Musculoskeletal History: Reports: Arthritis, Osteoarthritis Other Musculoskeletal History: muscle weakness Neurological History: Reports: Other (See Below) Other Neuro History: cognitive communication deficit Psychiatric History: Reports: Dementia Endocrine/Metabolic History: Reports: None Hematologic History: Reports: None Immunologic History: Reports: None Oncologic (Cancer) History: Reports: None Dermatologic History: Reports: None - Infectious Disease History Infectious Disease History: Reports: None - Past Surgical History Head Surgeries/Procedures: Reports: None HEENT Surgical History: Reports: Cataract Surgery Cardiovascular Surgical History: Reports: None Respiratory Surgical History: Reports: None GI Surgical History: Reports: None Male Surgical History: Reports: None Endocrine Surgical History: Reports: None Neurological Surgical History: Reports: None Dermatological Surgical History: Reports: None Social & Family History - Family History Family Medical History: Noncontributory Cardiac: Reports: Heart Failure, Hypertension Respiratory: Reports: None - Tobacco Use Smoking Status *Q: Never Smoker Second Hand Smoke Exposure: No - Caffeine Use Caffeine Use: Reports: Coffee - Recreational Drug Use Recreational Drug Use: No H&P Review of Systems - Review of Systems: Review Of Systems: Unable To Obtain Exam - Exam Exam: See Below - Vital Signs Vital Signs: Last Vital Signs Temp 37.1 C 02/05/18 12:00 Pulse 98 02/05/18 12:00 Resp 18 02/05/18 01:10 BP 92/56 L 02/05/18 12:00 Pulse Ox 93 L 02/05/18 12:00 Weight: 55.5 kg - Exam General: Cooperative HEENT: Mucosa Moist & [place] Lungs: Clear to Auscultation, Normal Respiratory Effort Cardiovascular: Regular Rate, Regular Rhythm GI/Abdominal Exam: Soft, Non-Tender Extremities: No Pedal Edema, Other (effusuion of right elbow, erythema over right elbow, full range of motion of elbow) - Patient Data Lab Results Last 24 hrs: Laboratory Results - last 24 hr 02/04/18 02/04/18 02/04/18 Range/Units 21:47 21:47 21:47 WBC 9.80 (4.0-11.0) K/uL RBC 3.21 L (4.50-5.90) M/uL Hgb 9.4 L (13.0-17.0) g/dL Hct 30.1 L (38.0-50.0) % MCV 93.8 (80.0-98.0) fL MCH 29.3 (27.0-32.0) pg MCHC 31.2 (31.0-37.0) g/dL RDW Std Deviation 55.8 (28.0-62.0) fl RDW Coeff of Francisco 16 H (11.0-15.0) % Plt Count 252 (150-400) K/uL MPV 8.50 (7.40-12.00) fL Neut % (Auto) 71.9 (48.0-80.0) % Lymph % (Auto) 16.0 (16.0-40.0) % Gray % (Auto) 10.4 (0.0-15.0) % Eos % (Auto) 1.5 (0.0-7.0) % Baso % (Auto) 0.2 (0.0-1.5) % Neut # (Auto) 7.0 H (1.4-5.7) K/uL Lymph # (Auto) 1.6 (0.6-2.4) K/uL Gray # (Auto) 1.0 H (0.0-0.8) K/uL Eos # (Auto) 0.2 (0.0-0.7) K/uL Baso # (Auto) 0.0 (0.0-0.1) K/uL Nucleated RBC % 0.0 /100WBC Nucleated RBCs # 0 K/uL INR 1.04 Lactate (0.20-2.00) mmol/L Sodium 143 (136-148) mmol/L Potassium 3.5 (3.5-5.1) mmol/L Chloride 109 H (98-107) mmol/L Carbon Dioxide 24.9 (21.0-32.0) mmol/L BUN 23 H (7.0-18.0) mg/dL Creatinine 1.3 (0.8-1.3) mg/dL Est Cr Clr Drug Dosing TNP Estimated GFR (MDRD) 52.0 ml/min Glucose 124 H (74-106) mg/dL Calcium 8.4 L (8.5-10.1) mg/dL Total Bilirubin 0.5 (0.2-1.0) mg/dL AST 21 (15-37) IU/L ALT 22 (14-63) IU/L Alkaline Phosphatase 66 (46-116) U/L Creatine Kinase 226 (26-308) U/L CK-MB (CK-2) 1.6 (0-3.6) ng/mL Troponin I 0.063 H* (0.000-0.056) ng/mL B-Natriuretic Peptide (<100) PG/ML Total Protein 7.5 (6.4-8.2) g/dL Albumin 3.0 L (3.4-5.0) g/dL Globulin 4.5 H (2.0-3.5) g/dL Albumin/Globulin Ratio 0.7 L (1.3-2.8) Urine Color Urine Appearance Urine pH (5.0-8.0) Ur Specific Bath (1.001-1.035) Urine Protein (NEGATIVE) mg/dL Urine Glucose (UA) (NEGATIVE) mg/dL Urine Ketones (NEGATIVE) mg/dL Urine Occult Blood (NEGATIVE) Urine Nitrite (NEGATIVE) Urine Bilirubin (NEGATIVE) Urine Ictotest Urine Urobilinogen (<2.0) EU/dL Ur Leukocyte Esterase (NEGATIVE) Urine RBC (0-2/HPF) Urine WBC (0-5/HPF) Ur Epithelial Cells (NONE-FEW) Urine Bacteria (NEGATIVE) 02/04/18 02/04/18 02/04/18 Range/Units 21:47 21:47 23:26 WBC (4.0-11.0) K/uL RBC (4.50-5.90) M/uL Hgb (13.0-17.0) g/dL Hct (38.0-50.0) % MCV (80.0-98.0) fL MCH (27.0-32.0) pg MCHC (31.0-37.0) g/dL RDW Std Deviation (28.0-62.0) fl RDW Coeff of Francisco (11.0-15.0) % Plt Count (150-400) K/uL MPV (7.40-12.00) fL Neut % (Auto) (48.0-80.0) % Lymph % (Auto) (16.0-40.0) % Gray % (Auto) (0.0-15.0) % Eos % (Auto) (0.0-7.0) % Baso % (Auto) (0.0-1.5) % Neut # (Auto) (1.4-5.7) K/uL Lymph # (Auto) (0.6-2.4) K/uL Gray # (Auto) (0.0-0.8) K/uL Eos # (Auto) (0.0-0.7) K/uL Baso # (Auto) (0.0-0.1) K/uL Nucleated RBC % /100WBC Nucleated RBCs # K/uL INR Lactate 1.0 (0.20-2.00) mmol/L Sodium (136-148) mmol/L Potassium (3.5-5.1) mmol/L Chloride (98-107) mmol/L Carbon Dioxide (21.0-32.0) mmol/L BUN (7.0-18.0) mg/dL Creatinine (0.8-1.3) mg/dL Est Cr Clr Drug Dosing Estimated GFR (MDRD) ml/min Glucose (74-106) mg/dL Calcium (8.5-10.1) mg/dL Total Bilirubin (0.2-1.0) mg/dL AST (15-37) IU/L ALT (14-63) IU/L Alkaline Phosphatase (46-116) U/L Creatine Kinase (26-308) U/L CK-MB (CK-2) (0-3.6) ng/mL Troponin I (0.000-0.056) ng/mL B-Natriuretic Peptide 187 H (<100) PG/ML Total Protein (6.4-8.2) g/dL Albumin (3.4-5.0) g/dL Globulin (2.0-3.5) g/dL Albumin/Globulin Ratio (1.3-2.8) Urine Color YELLOW Urine Appearance CLEAR Urine pH 5.5 (5.0-8.0) Ur Specific Bath 1.025 (1.001-1.035) Urine Protein NEGATIVE (NEGATIVE) mg/dL Urine Glucose (UA) NEGATIVE (NEGATIVE) mg/dL Urine Ketones NEGATIVE (NEGATIVE) mg/dL Urine Occult Blood NEGATIVE (NEGATIVE) Urine Nitrite NEGATIVE (NEGATIVE) Urine Bilirubin SMALL H (NEGATIVE) Urine Ictotest NEGATIVE Urine Urobilinogen 0.2 (<2.0) EU/dL Ur Leukocyte Esterase NEGATIVE (NEGATIVE) Urine RBC 0-2 (0-2/HPF) Urine WBC 0-1 (0-5/HPF) Ur Epithelial Cells RARE (NONE-FEW) Urine Bacteria FEW (NEGATIVE) 02/05/18 02/05/18 02/05/18 Range/Units 03:48 03:48 10:12 WBC 9.14 (4.0-11.0) K/uL RBC 3.05 L (4.50-5.90) M/uL Hgb 8.9 L (13.0-17.0) g/dL Hct 28.6 L (38.0-50.0) % MCV 93.8 (80.0-98.0) fL MCH 29.2 (27.0-32.0) pg MCHC 31.1 (31.0-37.0) g/dL RDW Std Deviation 55.2 (28.0-62.0) fl RDW Coeff of Francisco 16 H (11.0-15.0) % Plt Count 235 (150-400) K/uL MPV 8.60 (7.40-12.00) fL Neut % (Auto) 74.2 (48.0-80.0) % Lymph % (Auto) 13.6 L (16.0-40.0) % Gray % (Auto) 10.1 (0.0-15.0) % Eos % (Auto) 1.9 (0.0-7.0) % Baso % (Auto) 0.2 (0.0-1.5) % Neut # (Auto) 6.8 H (1.4-5.7) K/uL Lymph # (Auto) 1.2 (0.6-2.4) K/uL Gray # (Auto) 0.9 H (0.0-0.8) K/uL Eos # (Auto) 0.2 (0.0-0.7) K/uL Baso # (Auto) 0.0 (0.0-0.1) K/uL Nucleated RBC % 0.0 /100WBC Nucleated RBCs # 0 K/uL INR Lactate (0.20-2.00) mmol/L Sodium (136-148) mmol/L Potassium (3.5-5.1) mmol/L Chloride (98-107) mmol/L Carbon Dioxide (21.0-32.0) mmol/L BUN (7.0-18.0) mg/dL Creatinine (0.8-1.3) mg/dL Est Cr Clr Drug Dosing Estimated GFR (MDRD) ml/min Glucose (74-106) mg/dL Calcium (8.5-10.1) mg/dL Total Bilirubin (0.2-1.0) mg/dL AST (15-37) IU/L ALT (14-63) IU/L Alkaline Phosphatase (46-116) U/L Creatine Kinase (26-308) U/L CK-MB (CK-2) (0-3.6) ng/mL Troponin I 0.064 H* 0.279 H* (0.000-0.056) ng/mL B-Natriuretic Peptide (<100) PG/ML Total Protein (6.4-8.2) g/dL Albumin (3.4-5.0) g/dL Globulin (2.0-3.5) g/dL Albumin/Globulin Ratio (1.3-2.8) Urine Color Urine Appearance Urine pH (5.0-8.0) Ur Specific Bath (1.001-1.035) Urine Protein (NEGATIVE) mg/dL Urine Glucose (UA) (NEGATIVE) mg/dL Urine Ketones (NEGATIVE) mg/dL Urine Occult Blood (NEGATIVE) Urine Nitrite (NEGATIVE) Urine Bilirubin (NEGATIVE) Urine Ictotest Urine Urobilinogen (<2.0) EU/dL Ur Leukocyte Esterase (NEGATIVE) Urine RBC (0-2/HPF) Urine WBC (0-5/HPF) Ur Epithelial Cells (NONE-FEW) Urine Bacteria (NEGATIVE) Result Diagrams: 02/05/18 03:48 02/04/18 21:47 Chun Results Last 24 hrs: Microbiology 02/04/18 23:26 Influenza Type A Antigen Screen - Final Nasopharyngeal Swab NEGATIVE INFLUENZA A VIRUS AG Influenza Type B Antigen Screen - Final NEGATIVE INFLUENZA B VIRUS AG Problem List Initiated/Reviewed/Updated: Yes Orders Last 24hrs: Active Orders 24 hr Category Date Time Status Admission Status [Patient Status] [ADT] Stat ADT 02/05/18 00:37 Active EKG Documentation Completion [RC] URGENT Care 02/05/18 10:47 Active Notify Provider Consults [RC] ASDIRECTED Care 02/05/18 11:39 Active Engineering Lab Technician Discontinue [Cardiac Monitoring Care 02/05/18 11:35 Active Discontinue] [RC] Click to Edit Telemetry Monitoring [Cardiac Monitoring] [RC] Q8H Care 02/05/18 00:50 Active Consult to Physician [CONS] Routine Cons 02/05/18 11:39 Active Regular Diet [DIET] Diet 02/05/18 Breakfast Active Chest 1V Frontal [CR] Stat Exams 02/04/18 21:33 Taken Elbow Min 3V Rt [CR] Stat Exams 02/04/18 21:44 Taken CULTURE BLOOD [BC] Stat Lab 02/04/18 21:47 Received CULTURE BLOOD [BC] Stat Lab 02/04/18 21:58 Received CULTURE STOOL + CAMPY+SHIGATOX [RM] Routine Lab 02/05/18 13:46 Ordered CULTURE URINE [RM] Stat Lab 02/04/18 23:26 Ordered CULTURE WOUND [RM] Routine Lab 02/04/18 21:33 Received Clostridium Difficile [CDIFF TOX A+B] [OP] Routine Lab 02/05/18 13:45 Ordered INFLUENZA A+B AG SCREEN [RM] Stat Lab 02/04/18 23:26 Ordered UA W/MICROSCOPIC [URIN] Stat Lab 02/04/18 23:26 Ordered VANCOMYCIN TROUGH [CHEM] Timed Lab 02/08/18 00:01 Ordered Donepezil [Aricept] Med 02/05/18 21:00 Ordered 1 tab PO BEDTIME Haloperidol Lactate [Haldol] Med 02/05/18 02:02 Active 1 mg IM Q6H PRN LORazepam [Ativan] Med 02/05/18 13:43 Ordered 0.5 mg PO TID PRN Levothyroxine [Synthroid] Med 02/05/18 13:45 Ordered 50 mcg PO DAILY Melatonin [Melatonin] Med 02/05/18 13:43 Ordered 5 mg PO BEDTIME PRN OLANZapine [ZyPREXA] Med 02/05/18 21:00 Ordered 10 mg PO BEDTIME Piperacillin/Tazobactam [Piperacil-Tazobact] 3.375 gm Med 02/05/18 08:00 Active Sodium Chloride 0.9% [Normal Saline] 50 ml IV Q6H Sodium Chloride 0.9% [Normal Saline] 1,000 ml Med 02/04/18 22:30 Active IV STAT Vancomycin Pharmacy to Dose [Pharmacy to Dose - Med 02/05/18 02:00 Active Vancomycin] 1 dose .XX ASDIRECTED Vancomycin [Vancocin] 1 gm Med 02/06/18 01:00 Active Sodium Chloride 0.9% [Normal Saline] 250 ml IV Q24H Blood Culture x2 Reflex Set [OM.PC] Stat Oth 02/04/18 21:38 Ordered Medication Orders Donepezil HCl (Aricept) mg PO BEDTIME SIMBA Haloperidol Lactate (Haldol) 1 mg IM Q6H PRN PRN Reason: Agitation Sodium Chloride (Normal Saline) 1,000 mls @ 125 mls/hr IV STAT SIMBA Last Admin: 02/04/18 22:29 Dose: 125 mls/hr Piperacillin Sod/Tazobactam (Sod 3.375 gm/ Sodium Chloride) 50 mls @ 100 mls/ hr IV Q6H SIMBA Vancomycin HCl 1 gm/ Sodium (Chloride) 250 mls @ 166 mls/hr IV Q24H SIMBA Levothyroxine Sodium (Synthroid) 50 mcg PO DAILY SIMBA Lorazepam (Ativan) 0.5 mg PO TID PRN PRN Reason: Restlessness Non-Formulary Medication (Melatonin [Melatonin]) 5 mg PO BEDTIME PRN PRN Reason: Insomnia Non-Formulary Medication (Olanzapine [Zyprexa]) 10 mg PO BEDTIME SIMBA Vancomycin HCl (Pharmacy To Dose - Vancomycin) 1 dose .XX ASDIRECTED [facility] Assessment/Plan Comment:: 87 yo male admitted with olecranon bursitis and celullutis. We will treat with broad spectrum antibiotics Olecranon bursitis: on vancomycin and zosyn Mildly elevated troponins with normal EKG: family does not want further cardiac work up or treatment Lewy body dementia: goal is palliative care. Family however is wanting orthopedic consultation. I spoke with Dr. Freed who will see the patient.
[2018-02-05] MEDS: Levothyroxine 50 MCG Tab PO SCH (14:00)
[2018-02-05] MEDS: Heparin Sodium 5,000 Units/ML Vial SUBCUT SCH (14:00)
[2018-02-05] MEDS: LORazepam 2 MG/ML SDV IVPUSH PRN ×2 (14:26→20:26)
[2018-02-05] MEDS: Haloperidol Lactate 5 MG/ML SDV IM PRN (15:21)
--- NOTE | 2018-02-05 16:25 | PCM.CONS ---
H&P History of Present Illness - General Date of Service: 02/05/18 Admit Problem/Dx: Admission Diagnosis/Problem Admission Diagnosis/Problem Cellulitis Source of Information: Family, Care Home Records, RN Notes Reviewed History Limitations: Reports: Altered Mental Status, Combative/Threatening - History of Present Illness Initial Comments - Free Text/Narative: 87 y/o male with h/o Lewy body dementia who has had multiple falls and skin tears to the R elbow over the past few weeks. Over past few days family and staff at [facility] noted increased redness and swelling to the right elbow region. He does not appear to be in pain. No other injuries from recent falls noted. Brought to ER today and admitted to hospital with R elbow cellulitis. Started on Vanco and zosyn. - Related Data Allergies/Adverse Reactions: Allergies Allergy/AdvReac Type Severity Reaction Status Date / Time No Known Allergies Allergy Verified 09/01/17 15:23 Home Medications: Home Meds Acetaminophen [Tylenol] 650 mg PO Q4H PRN #30 tablet 09/03/17 [Rx] Donepezil HCl [Aricept] 1 tab PO BEDTIME 02/04/18 [History] LORazepam [Ativan] 0.5 mg PO TID PRN 02/04/18 [History] Levothyroxine [Synthroid] 50 mcg PO DAILY 02/04/18 [History] Melatonin 5 mg PO BEDTIME PRN 02/04/18 [History] OLANZapine [ZyPREXA] 10 mg PO BEDTIME 02/04/18 [History] Polyethylene Glycol 3350 [MiraLAX] 17 gr PO ASDIRECTED 02/04/18 [History] Acetaminophen [Tylenol] 650 mg PO BEDTIME 02/05/18 [History] Acetaminophen [Tylenol] 650 mg PO DAILY 02/05/18 [History] Past Medical History HEENT History: Reports: Cataract Other HEENT History: dysphagia Cardiovascular History: Reports: None Other Cardiovascular History: Carotid artery stenosis Respiratory History: Reports: None Gastrointestinal History: Reports: None Genitourinary History: Reports: None Other Genitourinary History: hematuria; frequency of micturation Musculoskeletal History: Reports: Arthritis, Osteoarthritis Other Musculoskeletal History: muscle weakness Neurological History: Reports: Other (See Below) Other Neuro History: cognitive communication deficit Psychiatric History: Reports: Dementia Endocrine/Metabolic History: Reports: None Hematologic History: Reports: None Immunologic History: Reports: None Oncologic (Cancer) History: Reports: None Dermatologic History: Reports: None - Infectious Disease History Infectious Disease History: Reports: None - Past Surgical History Head Surgeries/Procedures: Reports: None HEENT Surgical History: Reports: Cataract Surgery Cardiovascular Surgical History: Reports: None Respiratory Surgical History: Reports: None GI Surgical History: Reports: None Male Surgical History: Reports: None Endocrine Surgical History: Reports: None Neurological Surgical History: Reports: None Dermatological Surgical History: Reports: None Social & Family History - Family History Family Medical History: Noncontributory Cardiac: Reports: Heart Failure, Hypertension Respiratory: Reports: None - Tobacco Use Smoking Status *Q: Never Smoker Second Hand Smoke Exposure: No - Caffeine Use Caffeine Use: Reports: Coffee - Recreational Drug Use Recreational Drug Use: No H&P Review of Systems - Review of Systems: Review Of Systems: Unable To Obtain Exam - Exam Exam: See Below - Vital Signs Vital Signs: Last Vital Signs Temp 98.8 F 02/05/18 12:00 Pulse 98 02/05/18 12:00 Resp 18 02/05/18 01:10 BP 92/56 L 02/05/18 12:00 Pulse Ox 93 L 02/05/18 12:00 Weight: 55.5 kg - Exam General: Alert. No: Oriented HEENT: Mucosa Moist & [place], Nares Patent Neck: Supple, Trachea Midline, 2 Lungs: Normal Respiratory Effort Cardiovascular: Regular Rate GI/Abdominal Exam: Soft Neuro Extensive - Mental Status: Alert, Disorientation to Person, Disorientation to Place, Disorientation to Time, Inattentive. No: Oriented x3 Psychiatric: Alert Physical Exam Comments:: exam of patient shows no orientation. Alert, but does not respond to questions or commands. Exam of RUE show mild swelling over the olecranon bursa with surrounding erythema. No induration noted. Able to move elbow spontaneously, but will not respond to commands. Radial pulse 2+. - Patient Data Lab Results Last 24 hrs: Laboratory Results - last 24 hr 02/04/18 02/04/18 02/04/18 Range/Units 21:47 21:47 21:47 WBC 9.80 (4.0-11.0) K/uL RBC 3.21 L (4.50-5.90) M/uL Hgb 9.4 L (13.0-17.0) g/dL Hct 30.1 L (38.0-50.0) % MCV 93.8 (80.0-98.0) fL MCH 29.3 (27.0-32.0) pg MCHC 31.2 (31.0-37.0) g/dL RDW Std Deviation 55.8 (28.0-62.0) fl RDW Coeff of Francisco 16 H (11.0-15.0) % Plt Count 252 (150-400) K/uL MPV 8.50 (7.40-12.00) fL Neut % (Auto) 71.9 (48.0-80.0) % Lymph % (Auto) 16.0 (16.0-40.0) % [place] % (Auto) 10.4 (0.0-15.0) % Eos % (Auto) 1.5 (0.0-7.0) % Baso % (Auto) 0.2 (0.0-1.5) % Neut # (Auto) 7.0 H (1.4-5.7) K/uL Lymph # (Auto) 1.6 (0.6-2.4) K/uL Winston # (Auto) 1.0 H (0.0-0.8) K/uL Eos # (Auto) 0.2 (0.0-0.7) K/uL Baso # (Auto) 0.0 (0.0-0.1) K/uL Nucleated RBC % 0.0 /100WBC Nucleated RBCs # 0 K/uL INR 1.04 Lactate (0.20-2.00) mmol/L Sodium 143 (136-148) mmol/L Potassium 3.5 (3.5-5.1) mmol/L Chloride 109 H (98-107) mmol/L Carbon Dioxide 24.9 (21.0-32.0) mmol/L BUN 23 H (7.0-18.0) mg/dL Creatinine 1.3 (0.8-1.3) mg/dL Est Cr Clr Drug Dosing TNP Estimated GFR (MDRD) 52.0 ml/min Glucose 124 H (74-106) mg/dL Calcium 8.4 L (8.5-10.1) mg/dL Total Bilirubin 0.5 (0.2-1.0) mg/dL AST 21 (15-37) IU/L ALT 22 (14-63) IU/L Alkaline Phosphatase 66 (46-116) U/L Creatine Kinase 226 (26-308) U/L CK-MB (CK-2) 1.6 (0-3.6) ng/mL Troponin I 0.063 H* (0.000-0.056) ng/mL B-Natriuretic Peptide (<100) PG/ML Total Protein 7.5 (6.4-8.2) g/dL Albumin 3.0 L (3.4-5.0) g/dL Globulin 4.5 H (2.0-3.5) g/dL Albumin/Globulin Ratio 0.7 L (1.3-2.8) Urine Color Urine Appearance Urine pH (5.0-8.0) Ur Specific [place] (1.001-1.035) Urine Protein (NEGATIVE) mg/dL Urine Glucose (UA) (NEGATIVE) mg/dL Urine Ketones (NEGATIVE) mg/dL Urine Occult Blood (NEGATIVE) Urine Nitrite (NEGATIVE) Urine Bilirubin (NEGATIVE) Urine Ictotest Urine Urobilinogen (<2.0) EU/dL Ur Leukocyte Esterase (NEGATIVE) Urine RBC (0-2/HPF) Urine WBC (0-5/HPF) Ur Epithelial Cells (NONE-FEW) Urine Bacteria (NEGATIVE) 02/04/18 02/04/18 02/04/18 Range/Units 21:47 21:47 23:26 WBC (4.0-11.0) K/uL RBC (4.50-5.90) M/uL Hgb (13.0-17.0) g/dL Hct (38.0-50.0) % MCV (80.0-98.0) fL MCH (27.0-32.0) pg MCHC (31.0-37.0) g/dL RDW Std Deviation (28.0-62.0) fl RDW Coeff of [place] (11.0-15.0) % Plt Count (150-400) K/uL MPV (7.40-12.00) fL Neut % (Auto) (48.0-80.0) % Lymph % (Auto) (16.0-40.0) % [place] % (Auto) (0.0-15.0) % Eos % (Auto) (0.0-7.0) % Baso % (Auto) (0.0-1.5) % Neut # (Auto) (1.4-5.7) K/uL Lymph # (Auto) (0.6-2.4) K/uL Winston # (Auto) (0.0-0.8) K/uL Eos # (Auto) (0.0-0.7) K/uL Baso # (Auto) (0.0-0.1) K/uL Nucleated RBC % /100WBC Nucleated RBCs # K/uL INR Lactate 1.0 (0.20-2.00) mmol/L Sodium (136-148) mmol/L Potassium (3.5-5.1) mmol/L Chloride (98-107) mmol/L Carbon Dioxide (21.0-32.0) mmol/L BUN (7.0-18.0) mg/dL Creatinine (0.8-1.3) mg/dL Est Cr Clr Drug Dosing Estimated GFR (MDRD) ml/min Glucose (74-106) mg/dL Calcium (8.5-10.1) mg/dL Total Bilirubin (0.2-1.0) mg/dL AST (15-37) IU/L ALT (14-63) IU/L Alkaline Phosphatase (46-116) U/L Creatine Kinase (26-308) U/L CK-MB (CK-2) (0-3.6) ng/mL Troponin I (0.000-0.056) ng/mL B-Natriuretic Peptide 187 H (<100) PG/ML Total Protein (6.4-8.2) g/dL Albumin (3.4-5.0) g/dL Globulin (2.0-3.5) g/dL Albumin/Globulin Ratio (1.3-2.8) Urine Color YELLOW Urine Appearance CLEAR Urine pH 5.5 (5.0-8.0) Ur Specific [place] 1.025 (1.001-1.035) Urine Protein NEGATIVE (NEGATIVE) mg/dL Urine Glucose (UA) NEGATIVE (NEGATIVE) mg/dL Urine Ketones NEGATIVE (NEGATIVE) mg/dL Urine Occult Blood NEGATIVE (NEGATIVE) Urine Nitrite NEGATIVE (NEGATIVE) Urine Bilirubin SMALL H (NEGATIVE) Urine Ictotest NEGATIVE Urine Urobilinogen 0.2 (<2.0) EU/dL Ur Leukocyte Esterase NEGATIVE (NEGATIVE) Urine RBC 0-2 (0-2/HPF) Urine WBC 0-1 (0-5/HPF) Ur Epithelial Cells RARE (NONE-FEW) Urine Bacteria FEW (NEGATIVE) 02/05/18 02/05/18 02/05/18 Range/Units 03:48 03:48 10:12 WBC 9.14 (4.0-11.0) K/uL RBC 3.05 L (4.50-5.90) M/uL Hgb 8.9 L (13.0-17.0) g/dL Hct 28.6 L (38.0-50.0) % MCV 93.8 (80.0-98.0) fL MCH 29.2 (27.0-32.0) pg MCHC 31.1 (31.0-37.0) g/dL RDW Std Deviation 55.2 (28.0-62.0) fl RDW Coeff of [place] 16 H (11.0-15.0) % Plt Count 235 (150-400) K/uL MPV 8.60 (7.40-12.00) fL Neut % (Auto) 74.2 (48.0-80.0) % Lymph % (Auto) 13.6 L (16.0-40.0) % [place] % (Auto) 10.1 (0.0-15.0) % Eos % (Auto) 1.9 (0.0-7.0) % Baso % (Auto) 0.2 (0.0-1.5) % Neut # (Auto) 6.8 H (1.4-5.7) K/uL Lymph # (Auto) 1.2 (0.6-2.4) K/uL [place] # (Auto) 0.9 H (0.0-0.8) K/uL Eos # (Auto) 0.2 (0.0-0.7) K/uL Baso # (Auto) 0.0 (0.0-0.1) K/uL Nucleated RBC % 0.0 /100WBC Nucleated RBCs # 0 K/uL INR Lactate (0.20-2.00) mmol/L Sodium (136-148) mmol/L Potassium (3.5-5.1) mmol/L Chloride (98-107) mmol/L Carbon Dioxide (21.0-32.0) mmol/L BUN (7.0-18.0) mg/dL Creatinine (0.8-1.3) mg/dL Est Cr Clr Drug Dosing Estimated GFR (MDRD) ml/min Glucose (74-106) mg/dL Calcium (8.5-10.1) mg/dL Total Bilirubin (0.2-1.0) mg/dL AST (15-37) IU/L ALT (14-63) IU/L Alkaline Phosphatase (46-116) U/L Creatine Kinase (26-308) U/L CK-MB (CK-2) (0-3.6) ng/mL Troponin I 0.064 H* 0.279 H* (0.000-0.056) ng/mL B-Natriuretic Peptide (<100) PG/ML Total Protein (6.4-8.2) g/dL Albumin (3.4-5.0) g/dL Globulin (2.0-3.5) g/dL Albumin/Globulin Ratio (1.3-2.8) Urine Color Urine Appearance Urine pH (5.0-8.0) Ur Specific [place] (1.001-1.035) Urine Protein (NEGATIVE) mg/dL Urine Glucose (UA) (NEGATIVE) mg/dL Urine Ketones (NEGATIVE) mg/dL Urine Occult Blood (NEGATIVE) Urine Nitrite (NEGATIVE) Urine Bilirubin (NEGATIVE) Urine Ictotest Urine Urobilinogen (<2.0) EU/dL Ur Leukocyte Esterase (NEGATIVE) Urine RBC (0-2/HPF) Urine WBC (0-5/HPF) Ur Epithelial Cells (NONE-FEW) Urine Bacteria (NEGATIVE) Result Diagrams: 02/05/18 03:48 02/04/18 21:47 Chun Results Last 24 hrs: Microbiology 02/04/18 23:26 Influenza Type A Antigen Screen - Final Nasopharyngeal Swab NEGATIVE INFLUENZA A VIRUS AG Influenza Type B Antigen Screen - Final NEGATIVE INFLUENZA B VIRUS AG Imaging Impressions Last 24 hrs: XR R elbow reviewed. Shows degenerative changes without acute findings. Consult PN Assessment/Plan Procedures: Procedures ASSAY OF CK (CPK) (09/01/17) ASSAY OF TROPONIN QUANT (09/01/17) AUTOMATED RETICULOCYTE COUNT (09/01/17) CHEST X-RAY 1 VIEW FRONTAL (09/01/17) COMPLETE CBC W/AUTO DIFF WBC (09/01/17) COMPREHEN METABOLIC PANEL (09/01/17) CT ABD & PELVIS W/O CONTRAST (09/01/17) CT HEAD/BRAIN W/O DYE (09/01/17) CT NECK SPINE W/O DYE (09/01/17) CYTOPATH FL NONGYN SMEARS (09/01/17) ELECTROCARDIOGRAM TRACING (09/01/17) EMERGENCY DEPT VISIT (09/01/17) HYDRATE IV INFUSION ADD-ON (09/01/17) PT EVAL MOD COMPLEX 30 MIN (09/01/17) ROUTINE VENIPUNCTURE (09/01/17) THER/PROPH/DIAG INJ IV PUSH (09/01/17) URINALYSIS AUTO W/SCOPE (09/01/17) X-RAY EXAM HIP UNI 1 VIEW (09/01/17) X-RAY EXAM OF ANKLE (09/01/17) X-RAY EXAM OF KNEE 1 OR 2 (09/01/17) X-RAY EXAM OF SHOULDER (11/28/14) (1) Olecranon bursitis of right elbow SNOMED Code(s): 529726618 Code(s): M70.21 - OLECRANON BURSITIS, RIGHT ELBOW Current Visit: Yes (2) Cellulitis SNOMED Code(s): 865870183 Code(s): L03.90 - CELLULITIS, UNSPECIFIED Current Visit: Yes Qualifiers: Site of cellulitis: extremity Site of cellulitis of extremity: upper extremity Laterality: right Qualified Code(s): L03.113 - Cellulitis of right upper limb Problem List Initiated/Reviewed/Updated: Yes Plan: 1. recommend conservative treatment at this time 2. abx per hospitalist 3. I don't think the patient will tolerate elbow pad or splint, observe for now 4. discussed plan with patient's daughter--will treat conservatively at this time, if symptoms worsen may require aspiration or I&D 5. will f/u with patient on Wednesday--if he is discharged prior to that time recommend f/u with Fredrick mccauley. I am happy to see as outpatient as well if his symptoms persist. Thank you for this consult.
[2018-02-05] MEDS: Donepezil 10 MG Tab PO SCH (20:21)
[2018-02-05] MEDS: OLANZapine 5 MG Tab PO SCH (20:22)
[2018-02-05] MEDS ORDERED: Acetaminophen 325 MG Tab PO PRN (20:30)
[2018-02-05] MEDS: Albuterol/Ipratropium 3.0-0.5 MG/3 ML Neb Soln NEB PRN (21:12)
[2018-02-06] MEDS: Haloperidol Lactate 5 MG/ML SDV IM PRN (00:28)
[2018-02-06] MEDS: Heparin Sodium 5,000 Units/ML Vial SUBCUT SCH ×2 (01:20→13:58)
[2018-02-06] MEDS: Piperacillin/Tazobactam 3.375 GM in Sodium Chloride 0.9% 50 ML IV SCH ×4 (02:08→21:26)
[2018-02-06] MEDS: Albuterol/Ipratropium 3.0-0.5 MG/3 ML Neb Soln NEB PRN (03:46)
[2018-02-06] MEDS ORDERED: Furosemide 40 MG/4 ML VIAL IVPUSH STA (05:45)
[2018-02-06] MEDS: LORazepam 2 MG/ML SDV IVPUSH PRN ×3 (07:52→18:55)
[2018-02-06] MEDS ORDERED: Morphine 4 MG/ML Syringe IVPUSH PRN (08:07)
[2018-02-06] MEDS ORDERED: Levofloxacin/Dextrose 5%-Water 750 MG in Premix Bag 1 BAG IV SCH (08:15)
--- NOTE | 2018-02-06 08:16 | PCM.PN ---
- Review of Systems Systems Review Comment:: more agitated this morning, nonverbal - Patient Data Vitals - Most Recent: Last Vital Signs Temp 37.6 C 02/06/18 04:23 Pulse 118 H 02/06/18 08:00 Resp 32 H 02/06/18 08:00 BP 92/58 L 02/06/18 04:23 Pulse Ox 91 L 02/06/18 08:00 Weight - Most Recent: 55.5 kg I&O - Last 24 Hours: Intake & Output 02/05/18 02/06/18 02/06/18 22:59 06:59 14:59 Intake Total 665 Output Total 0 Balance 665 Lab Results Last 24 Hours: Laboratory Results - last 24 hr 02/05/18 02/06/18 02/06/18 Range/Units 10:12 05:42 05:42 WBC 12.07 H (4.0-11.0) K/uL RBC 3.22 L (4.50-5.90) M/uL Hgb 9.5 L (13.0-17.0) g/dL Hct 30.4 L (38.0-50.0) % MCV 94.4 (80.0-98.0) fL MCH 29.5 (27.0-32.0) pg MCHC 31.3 (31.0-37.0) g/dL RDW Std Deviation 55.4 (28.0-62.0) fl RDW Coeff of [place] 16 H (11.0-15.0) % Plt Count 280 (150-400) K/uL MPV 8.80 (7.40-12.00) fL Nucleated RBC % 0.0 /100WBC Nucleated RBCs # 0 K/uL ESR (0-19) mm/hr Sodium 146 (136-148) mmol/L Potassium 3.4 L (3.5-5.1) mmol/L Chloride 111 H (98-107) mmol/L Carbon Dioxide 20.3 L (21.0-32.0) mmol/L BUN 19 H (7.0-18.0) mg/dL Creatinine 1.4 H (0.8-1.3) mg/dL Est Cr Clr Drug Dosing 28.08 mL/min Estimated GFR (MDRD) 47.7 ml/min Glucose 138 H (74-106) mg/dL Calcium 7.9 L (8.5-10.1) mg/dL Troponin I 0.279 H* (0.000-0.056) ng/mL C-Reactive Protein (0.00-0.90) mg/dL 02/06/18 02/06/18 Range/Units 05:42 05:42 WBC (4.0-11.0) K/uL RBC (4.50-5.90) M/uL Hgb (13.0-17.0) g/dL Hct (38.0-50.0) % MCV (80.0-98.0) fL MCH (27.0-32.0) pg MCHC (31.0-37.0) g/dL RDW Std Deviation (28.0-62.0) fl RDW Coeff of [place] (11.0-15.0) % Plt Count (150-400) K/uL MPV (7.40-12.00) fL Nucleated RBC % /100WBC Nucleated RBCs # K/uL ESR 75 H (0-19) mm/hr Sodium (136-148) mmol/L Potassium (3.5-5.1) mmol/L Chloride (98-107) mmol/L Carbon Dioxide (21.0-32.0) mmol/L BUN (7.0-18.0) mg/dL Creatinine (0.8-1.3) mg/dL Est Cr Clr Drug Dosing mL/min Estimated GFR (MDRD) ml/min Glucose (74-106) mg/dL Calcium (8.5-10.1) mg/dL Troponin I (0.000-0.056) ng/mL C-Reactive Protein 16.70 H (0.00-0.90) mg/dL Chun Results Last 24 Hours: Microbiology 02/06/18 00:50 Clostridium difficile Toxin A & B - Final Stool / Feces Negative for C.Diff Toxin/AG 02/06/18 00:50 Campylobacter Antigen Assay - Final Stool / Feces NEGATIVE CAMPYLOBACTER AG 02/04/18 21:58 Aerobic Blood Culture - Preliminary Blood - Venous - Lab Draw NO GROWTH AFTER 1 DAY Anaerobic Blood Culture - Preliminary NO GROWTH AFTER 1 DAY 02/04/18 21:47 Aerobic Blood Culture - Preliminary Blood - Venous NO GROWTH AFTER 1 DAY Anaerobic Blood Culture - Preliminary NO GROWTH AFTER 1 DAY Med Orders - Current: Current Medications Acetaminophen (Tylenol) 650 mg PO Q4H PRN PRN Reason: Pain Albuterol/Ipratropium (Duoneb 3.0-0.5 Mg/3 Ml) 3 ml NEB Q4HRRT PRN PRN Reason: Wheezing Last Admin: 02/06/18 03:46 Dose: 3 ml Donepezil HCl (Aricept) 10 mg PO BEDTIME [facility] Last Admin: 02/05/18 20:21 Dose: 10 mg Haloperidol Lactate (Haldol) 1 - 5 mg IM Q6H PRN PRN Reason: Agitation Last Admin: 02/06/18 00:28 Dose: 5 mg Heparin Sodium (Porcine) (Heparin Sodium) 5,000 units SUBCUT Q12H [facility] Last Admin: 02/06/18 01:20 Dose: Not Given Piperacillin Sod/Tazobactam (Sod 3.375 gm/ Sodium Chloride) 50 mls @ 100 mls/ hr IV Q6H [facility] Last Admin: 02/06/18 07:59 Dose: 100 mls/hr Vancomycin HCl 1 gm/ Sodium (Chloride) 250 mls @ 166 mls/hr IV Q24H [facility] Last Admin: 02/06/18 00:09 Dose: 166 mls/hr Levofloxacin/Dextrose 750 mg/ (Premix) 150 mls @ 100 mls/hr IV Q24H [facility] Levothyroxine Sodium (Synthroid) 50 mcg PO ACBREAKFAST [facility] Last Admin: 02/05/18 14:00 Dose: Not Given Lorazepam (Ativan) 0.5 mg PO TID PRN PRN Reason: Restlessness Lorazepam (Ativan) 1 mg IVPUSH Q4H PRN PRN Reason: Agitation Last Admin: 02/06/18 07:52 Dose: 1 mg Melatonin (Melatonin) 3 mg PO BEDTIME PRN PRN Reason: Insomnia Last Admin: 02/05/18 20:22 Dose: 3 mg Morphine Sulfate (Morphine) 2 mg IVPUSH Q2H PRN PRN Reason: pain, air hunger Olanzapine (Zyprexa) 10 mg PO BEDTIME [facility] Last Admin: 02/05/18 20:22 Dose: 10 mg Vancomycin HCl (Pharmacy To Dose - Vancomycin) 1 dose .XX ASDIRECTED [facility] Discontinued Medications Aspirin (Aspirin) 324 mg PO ONETIME ONE Stop: 02/04/18 23:01 Last Admin: 02/05/18 00:10 Dose: 324 mg Furosemide (Lasix) 40 mg IVPUSH NOW STA Stop: 02/06/18 05:46 Haloperidol Lactate (Haldol) 1 mg IM Q6H PRN PRN Reason: Agitation Last Admin: 02/05/18 13:45 Dose: 1 mg Sodium Chloride (Normal Saline) 1,000 mls @ 125 mls/hr IV STAT [facility] Last Admin: 02/05/18 23:52 Dose: 125 mls/hr Vancomycin HCl 1 gm/ Sodium (Chloride) 250 mls @ 250 mls/hr IV ONETIME ONE Stop: 02/05/18 00:41 Last Admin: 02/05/18 00:10 Dose: 250 mls/hr Piperacillin Sod/Tazobactam (Sod 3.375 gm/ Sodium Chloride) 50 mls @ 100 mls/ hr IV ONETIME ONE Stop: 02/05/18 00:12 Last Admin: 02/05/18 01:27 Dose: 100 mls/hr Sodium Chloride (Normal Saline) 1,000 mls @ 125 mls/hr IV ASDIRECTED [facility] Last Admin: 02/05/18 05:32 Dose: 125 mls/hr - Exam General: Moderate Distress Lungs: Other (audible gurgling) Cardiovascular: Regular Rate, Regular Rhythm GI/Abdominal Exam: Soft, Non-Tender Extremities: No Pedal Edema, Other (no change in erythmea or swelling of right elbow) Neurological: No New Focal Deficit - Problem List Review Problem List Initiated/Reviewed/Updated: Yes - My Orders Last 24 Hours: My Active Orders 02/05/18 08:00 Piperacillin/Tazobactam [Piperacil-Tazobact] 3.375 gm Sodium Chloride 0.9% [ Normal Saline] 50 ml IV Q6H 02/05/18 11:35 Elder Assistant Discontinue [Cardiac Monitoring Discontinue] [RC] Click to Edit 02/05/18 11:39 Notify Provider Consults [RC] ASDIRECTED Consult to Physician [CONS] Routine 02/05/18 13:43 LORazepam [Ativan] 0.5 mg PO TID PRN Melatonin 3 mg PO BEDTIME PRN 02/05/18 13:45 Levothyroxine [Synthroid] 50 mcg PO ACBREAKFAST 02/05/18 13:46 Oxygen Therapy [RC] PRN Up ad Irish [RC] ASDIRECTED VTE/DVT Education [RC] PER UNIT ROUTINE Vital Signs [RC] Q4H Resuscitation Status Routine 02/05/18 13:47 Sequential Compression Device [OM.PC] Per Unit Routine 02/05/18 14:00 Heparin Sodium 5,000 units SUBCUT Q12H 02/05/18 14:11 LORazepam [Ativan] 1 mg IVPUSH Q4H PRN 02/05/18 15:04 Haloperidol Lactate [Haldol] 1 - 5 mg IM Q6H PRN 02/05/18 20:29 Albuterol/Ipratropium [DuoNeb 3.0-0.5 MG/3 ML] 3 ml NEB Q4HRRT PRN 02/05/18 20:30 Acetaminophen [Tylenol] 650 mg PO Q4H PRN 02/05/18 21:00 Donepezil [Aricept] 10 mg PO BEDTIME OLANZapine [ZyPREXA] 10 mg PO BEDTIME 02/06/18 00:50 CULTURE STOOL + CAMPY+SHIGATOX [RM] Routine 02/06/18 01:00 Vancomycin [Vancocin] 1 gm Sodium Chloride 0.9% [Normal Saline] 250 ml IV Q24H 02/06/18 05:44 CXR [Chest 1V Frontal] [CR] Stat 02/06/18 08:07 Morphine 2 mg IVPUSH Q2H PRN 02/06/18 08:15 Levofloxacin/Dextrose 5%-Water [Levaquin in D5W 750 MG/150 ML] 750 mg Premix Bag 1 bag IV Q24H - Plan Plan:: 87 yo male admitted with olecranon bursitis and celullutis. Patient is desating , to mid 80s on 5 liters, low blood pressures in the 80s to 90s systolic, with increasing creatinine and leukocytosis. Patient is developing sepsis with worsening delerium and acute hypoxic respiratory failure. CXR reports perihilar infiltrates. Olecranon bursitis: on vancomycin and zosyn will add levaquin Mildly elevated troponins with normal EKG: family does not want further cardiac work up or treatment Advanced Lewy body dementia: goal is palliative care. prognosis is poor, spoke with Leana who is wanting comfort measures which have been ordered.
[2018-02-06] MEDS: Levothyroxine 50 MCG Tab PO SCH (09:54)
[2018-02-06] MEDS: Acetaminophen 650 MG Supp RECTAL PRN (11:32)
[2018-02-06] MEDS: Donepezil 10 MG Tab PO SCH (21:36)
[2018-02-06] MEDS: OLANZapine 5 MG Tab PO SCH (21:36)
[2018-02-07] MEDS: Heparin Sodium 5,000 Units/ML Vial SUBCUT SCH (01:28)
[2018-02-07] MEDS: Acetaminophen 650 MG Supp RECTAL PRN (02:44)
[2018-02-07] MEDS: Piperacillin/Tazobactam 3.375 GM in Sodium Chloride 0.9% 50 ML IV SCH ×2 (03:09→08:53)
[2018-02-07] MEDS: LORazepam 2 MG/ML SDV IVPUSH PRN ×3 (03:15→13:12)
[2018-02-07] MEDS: Levothyroxine 50 MCG Tab PO SCH (06:47)
--- NOTE | 2018-02-07 08:59 | PCM.PN ---
- General Info Date of Service: 02/07/18 Admission Dx/Problem (Free Text): Admission Diagnosis/Problem Admission Diagnosis/Problem Cellulitis Subjective Update: Unresponsive this morning, agitated when assessed or vitals taken by nursing staff. Daughter Aurelia at bedside. Spoke with Aurelia in person, who called Leana, daughter per phone regarding treatment goals. They were notified of increasing sodium levels and asked if they wanted fluids started to help with this. They have decided they would like to transition to full palliative treatment and stop all antibiotics and provide medications for comfort only. - Patient Data Vitals - Most Recent: Last Vital Signs Temp 97.9 F 02/07/18 08:00 Pulse 110 H 02/07/18 08:00 Resp 23 H 02/07/18 08:00 BP 100/62 02/07/18 08:00 Pulse Ox 98 02/07/18 08:00 Weight - Most Recent: 55.5 kg I&O - Last 24 Hours: Intake & Output 02/06/18 02/07/18 02/07/18 22:59 06:59 14:59 Intake Total 0 350 Balance 0 350 Lab Results Last 24 Hours: Laboratory Results - last 24 hr 02/06/18 02/07/18 02/07/18 Range/Units 09:49 05:15 05:15 WBC 7.59 (4.0-11.0) K/uL RBC 2.89 L (4.50-5.90) M/uL Hgb 8.5 L (13.0-17.0) g/dL Hct 27.6 L (38.0-50.0) % MCV 95.5 (80.0-98.0) fL MCH 29.4 (27.0-32.0) pg MCHC 30.8 L (31.0-37.0) g/dL RDW Std Deviation 55.1 (28.0-62.0) fl RDW Coeff of Francisco 16 H (11.0-15.0) % Plt Count 255 (150-400) K/uL MPV 8.70 (7.40-12.00) fL Neut % (Auto) 75.0 (48.0-80.0) % Lymph % (Auto) 13.2 L (16.0-40.0) % Alger % (Auto) 9.1 (0.0-15.0) % Eos % (Auto) 2.4 (0.0-7.0) % Baso % (Auto) 0.3 (0.0-1.5) % Neut # (Auto) 5.7 (1.4-5.7) K/uL Lymph # (Auto) 1.0 (0.6-2.4) K/uL Alger # (Auto) 0.7 (0.0-0.8) K/uL Eos # (Auto) 0.2 (0.0-0.7) K/uL Baso # (Auto) 0.0 (0.0-0.1) K/uL Nucleated RBC % 0.0 /100WBC Nucleated RBCs # 0 K/uL Lactate 1.3 0.7 (0.20-2.00) mmol/L Sodium (136-148) mmol/L Potassium (3.5-5.1) mmol/L Chloride (98-107) mmol/L Carbon Dioxide (21.0-32.0) mmol/L BUN (7.0-18.0) mg/dL Creatinine (0.8-1.3) mg/dL Est Cr Clr Drug Dosing mL/min Estimated GFR (MDRD) ml/min Glucose (74-106) mg/dL Calcium (8.5-10.1) mg/dL 02/07/18 Range/Units 05:15 WBC (4.0-11.0) K/uL RBC (4.50-5.90) M/uL Hgb (13.0-17.0) g/dL Hct (38.0-50.0) % MCV (80.0-98.0) fL MCH (27.0-32.0) pg MCHC (31.0-37.0) g/dL RDW Std Deviation (28.0-62.0) fl RDW Coeff of Francisco (11.0-15.0) % Plt Count (150-400) K/uL MPV (7.40-12.00) fL Neut % (Auto) (48.0-80.0) % Lymph % (Auto) (16.0-40.0) % Alger % (Auto) (0.0-15.0) % Eos % (Auto) (0.0-7.0) % Baso % (Auto) (0.0-1.5) % Neut # (Auto) (1.4-5.7) K/uL Lymph # (Auto) (0.6-2.4) K/uL Alger # (Auto) (0.0-0.8) K/uL Eos # (Auto) (0.0-0.7) K/uL Baso # (Auto) (0.0-0.1) K/uL Nucleated RBC % /100WBC Nucleated RBCs # K/uL Lactate (0.20-2.00) mmol/L Sodium 149 H (136-148) mmol/L Potassium 3.2 L (3.5-5.1) mmol/L Chloride 117 H (98-107) mmol/L Carbon Dioxide 21.6 (21.0-32.0) mmol/L BUN 23 H (7.0-18.0) mg/dL Creatinine 1.3 (0.8-1.3) mg/dL Est Cr Clr Drug Dosing 30.24 mL/min Estimated GFR (MDRD) 52.0 ml/min Glucose 94 (74-106) mg/dL Calcium 7.7 L (8.5-10.1) mg/dL Chun Results Last 24 Hours: Microbiology 02/04/18 21:33 Wound Culture - Final Elbow, Right Staphylococcus Aureus Staphylococcus Coagulase Neg 02/04/18 21:58 Aerobic Blood Culture - Preliminary Blood - Venous - Lab Draw NO GROWTH AFTER 2 DAYS Anaerobic Blood Culture - Preliminary NO GROWTH AFTER 2 DAYS 02/04/18 21:47 Aerobic Blood Culture - Preliminary Blood - Venous NO GROWTH AFTER 2 DAYS Anaerobic Blood Culture - Preliminary NO GROWTH AFTER 2 DAYS 02/06/18 00:50 Campylobacter Antigen Assay - Final Stool / Feces NEGATIVE CAMPYLOBACTER AG - Final NEGATIVE FOR SHIGA TOXIN 1 - Final NEGATIVE FOR SHIGA TOXIN 2 Med Orders - Current: Current Medications Acetaminophen (Tylenol) 650 mg PO Q4H PRN PRN Reason: Pain Acetaminophen (Tylenol) 650 mg RECTAL Q6H PRN PRN Reason: Fever Last Admin: 02/07/18 02:44 Dose: 650 mg Albuterol/Ipratropium (Duoneb 3.0-0.5 Mg/3 Ml) 3 ml NEB Q4HRRT PRN PRN Reason: Wheezing Last Admin: 02/06/18 03:46 Dose: 3 ml Donepezil HCl (Aricept) 10 mg PO BEDTIME SIMBA Last Admin: 02/06/18 21:36 Dose: Not Given Haloperidol Lactate (Haldol) 1 - 5 mg IM Q6H PRN PRN Reason: Agitation Last Admin: 02/06/18 00:28 Dose: 5 mg Lorazepam (Ativan) 0.5 mg PO TID PRN PRN Reason: Restlessness Lorazepam (Ativan) 1 mg IVPUSH Q4H PRN PRN Reason: Agitation Last Admin: 02/07/18 03:15 Dose: 1 mg Melatonin (Melatonin) 3 mg PO BEDTIME PRN PRN Reason: Insomnia Last Admin: 02/05/18 20:22 Dose: 3 mg Morphine Sulfate (Morphine) 2 mg IVPUSH Q2H PRN PRN Reason: pain, air hunger Olanzapine (Zyprexa) 10 mg PO BEDTIME SIMBA Last Admin: 02/06/18 21:36 Dose: Not Given Discontinued Medications Aspirin (Aspirin) 324 mg PO ONETIME ONE Stop: 02/04/18 23:01 Last Admin: 02/05/18 00:10 Dose: 324 mg Furosemide (Lasix) 40 mg IVPUSH NOW STA Stop: 02/06/18 05:46 Last Admin: 02/06/18 09:53 Dose: Not Given Haloperidol Lactate (Haldol) 1 mg IM Q6H PRN PRN Reason: Agitation Last Admin: 02/05/18 13:45 Dose: 1 mg Heparin Sodium (Porcine) (Heparin Sodium) 5,000 units SUBCUT Q12H [facility] Last Admin: 02/07/18 01:28 Dose: 5,000 units Sodium Chloride (Normal Saline) 1,000 mls @ 125 mls/hr IV STAT [facility] Last Admin: 02/05/18 23:52 Dose: 125 mls/hr Vancomycin HCl 1 gm/ Sodium (Chloride) 250 mls @ 250 mls/hr IV ONETIME ONE Stop: 02/05/18 00:41 Last Admin: 02/05/18 00:10 Dose: 250 mls/hr Piperacillin Sod/Tazobactam (Sod 3.375 gm/ Sodium Chloride) 50 mls @ 100 mls/ hr IV ONETIME ONE Stop: 02/05/18 00:12 Last Admin: 02/05/18 01:27 Dose: 100 mls/hr Piperacillin Sod/Tazobactam (Sod 3.375 gm/ Sodium Chloride) 50 mls @ 100 mls/ hr IV Q6H [facility] Last Admin: 02/07/18 08:53 Dose: Not Given Sodium Chloride (Normal Saline) 1,000 mls @ 125 mls/hr IV ASDIRECTED [facility] Last Admin: 02/05/18 05:32 Dose: 125 mls/hr Vancomycin HCl 1 gm/ Sodium (Chloride) 250 mls @ 166 mls/hr IV Q24H [facility] Last Admin: 02/07/18 01:28 Dose: 166 mls/hr Levofloxacin/Dextrose 750 mg/ (Premix) 150 mls @ 100 mls/hr IV Q48H [facility] Last Admin: 02/06/18 09:54 Dose: Not Given Levothyroxine Sodium (Synthroid) 50 mcg PO ACBREAKFAST [facility] Last Admin: 02/07/18 06:47 Dose: Not Given Vancomycin HCl (Pharmacy To Dose - Vancomycin) 1 dose .XX ASDIRECTED [facility] - Exam General: Lethargic HEENT: Other Neck: Supple Lungs: Rhonchi (throughout lung thomas) Cardiovascular: Regular Rhythm, Tachycardia GI/Abdominal Exam: Normal Bowel Sounds, Soft, Non-Tender, No Organomegaly, No Distention, No Abnormal Bruit, No Mass, Pelvis Stable Extremities: Normal Inspection, No Pedal Edema Wound/Incisions: Erythema Improving (to R elbow. Skin tear intact, with healing scabbing noted. Tenderness with palpation. Vitaliy will withdraw arm when touched or moved. ) Neurological: No New Focal Deficit Psy/Mental Status: No: Alert - Problem List & Annotations (1) Palliative care status SNOMED Code(s): 781111928 Code(s): Z51.5 - ENCOUNTER FOR PALLIATIVE CARE Status: Acute Current Visit: Yes (2) Hypernatremia SNOMED Code(s): 31458545 Code(s): E87.0 - HYPEROSMOLALITY AND HYPERNATREMIA Status: Acute Current Visit: Yes (3) Olecranon bursitis of right elbow SNOMED Code(s): 550068733 Code(s): M70.21 - OLECRANON BURSITIS, RIGHT ELBOW Status: Acute Current Visit: Yes (4) Cellulitis SNOMED Code(s): 316025703 Code(s): L03.90 - CELLULITIS, UNSPECIFIED Status: Acute Current Visit: Yes Qualifiers: Site of cellulitis: extremity Site of cellulitis of extremity: upper extremity Laterality: right Qualified Code(s): L03.113 - Cellulitis of right upper limb (5) Lewy body dementia SNOMED Code(s): 587018726 Code(s): G31.83 - DEMENTIA WITH LEWY BODIES; F02.80 - DEMENTIA IN OTH DISEASES CLASSD ELSWHR W/O BEHAVRL DISTURB Status: Chronic Current Visit: Yes (6) Falls frequently SNOMED Code(s): 145683846 Code(s): R29.6 - REPEATED FALLS Status: Chronic Current Visit: No (7) Dysphagia SNOMED Code(s): 04540736, 922235908 Code(s): R13.10 - DYSPHAGIA, UNSPECIFIED Status: Chronic Current Visit: Yes (8) Carotid artery stenosis Status: Chronic Current Visit: Yes Qualifiers: Laterality: unspecified laterality Qualified Code(s): I65.29 - Occlusion and stenosis of unspecified carotid artery (9) Protein malnutrition SNOMED Code(s): 618800602 Code(s): E46 - UNSPECIFIED PROTEIN-CALORIE MALNUTRITION Status: Chronic Current Visit: Yes - Problem List Review Problem List Initiated/Reviewed/Updated: Yes - Plan Plan:: 87 yo male admitted with olecranon bursitis and celullitis, now transitioning to palliative care. Today patient continues to be lethargic with moments of agitation and restlessness. Family remains at bedside throughout the day and night.Hypernatremia noted this morning, likely secondary to dehydration and poor oral intake. Family was offered to start IV fluids to assist with this. I spoke with Aurelia in person and Leana via telephone, daughters, who both decided it was time to stop antibiotics and declined IVFs now. They would like to transition to full palliative care and provide medications only for comfort measures. They both agree he would not want to continue with antibiotics or IVFs and would want to be made comfortable until he passes away. Plan would be to transfer back to [place] tomorrow if stable enough for transfer. Hospice to be consulted at a later date. Will discontinue antibiotics. Comfort medications only. Will continue Haldol, Ativan and Morphine PRN. Oxygen for comfort. VS Q12hr.
--- NOTE | 2018-02-07 10:00 | CR ---
EXAM DATE: 02/05/18 PATIENT'S AGE: 87 Patient: SANTIAGO CANTU Facility: [place], [place] Site . Site : 1930 Study: XRay Chest [id number]/4/2018 10:11:11 PM Ordering Physician: Doctor Solano Final Report: INDICATION: pain, sob TECHNIQUE: Chest 1 view COMPARISON: None FINDINGS: Cardiovascular and mediastinum: Stable cardiac silhouette. Atherosclerotic disease.. Mediastinum is within normal limits. Lungs and pleural space: Questionable trace right-sided pleural effusion. Scarring throughout both lungs. No pneumothorax. Bones and soft tissues: Degenerative changes IMPRESSION: Questionable trace right-sided pleural effusion. Dictated by Jourdan Carney MD @ 02/04/2018 10:28:54 PM Dictated by: Jourdan Carney MD @ 02/04/2018 22:29:53 (Electronic Signature) Report Signed by Proxy. M[facility]Scotty
--- NOTE | 2018-02-07 10:01 | CR ---
EXAM DATE: 02/05/18 PATIENT'S AGE: 87 Patient: SANTIAGO CANTU Facility: [place], [place] Site . Site : 1930 Study: XRay Extremity Right elbow [id number]/4/2018 10:24:05 PM Ordering Physician: Kaley Bonilla Final Report: INDICATION: Fell 1 week ago, elbow swelling TECHNIQUE: Elbow radiograph 3 views right COMPARISON: None FINDINGS: Bones: No acute fractures or aggressive bone lesions are identified. Heterotopic bone formation is seen along the lateral epicondyle. Joints: Moderate osteoarthritis of the elbow joint is noted. No significant displacement of the anterior or posterior fat pads noted to suggest an effusion. Soft tissues: Soft tissue swelling is seen over the olecranon. No radiopaque foreign bodies are seen. IMPRESSION: 1. No acute osseous injuries or abnormalities are noted. Dictated by Deondre Elder MD @ 02/04/2018 10:40:07 PM Dictated by: Deondre Elder MD @ 02/04/2018 22:40:12 (Electronic Signature) Report Signed by Proxy. [facility] H[facility]PITALScotty
--- NOTE | 2018-02-07 11:26 | CR ---
EXAM DATE: 02/05/18 PATIENT'S AGE: 87 Patient: SANTIAGO CANTU Facility: [place], [place] Site . Site : 1930 Study: XRay Chest [id number]/6/2018 6:06:39 AM Ordering Physician: Cipriano Scherer Final Report: Indication: Wheezing Technique: Chest 1 view Comparison: February 04, 2018. Findings/Impression: New perihilar opacities may reflect atelectasis or infection. No pneumothorax or significant effusion. Stable cardiac size. Osteopenia. Dictated by Ivette Briggs MD @ Feb 06 2018 6:19AM (Electronic Signature) Report Signed by Proxy. [facility] CENTERScotty
--- NOTE | 2018-02-07 15:06 | PCM.SN ---
- Free Text/Narrative Note: Events of today noted. Antibiotics for cellulitis/bursitis discontinued. Patient placed on palliative care. Will sign off at this time. Please reconsult if further concerns.
[2018-02-08] MEDS: OLANZapine 5 MG Tab PO SCH (03:28)
[2018-02-08] MEDS: Donepezil 10 MG Tab PO SCH (03:28)
[2018-02-08] MEDS: LORazepam 2 MG/ML SDV IVPUSH PRN (06:54)
--- NOTE | 2018-02-08 07:59 | PCM.DCSUM1 ---
Discharge Summary - Hospital Course Brief History: This 87 year old male with pmh of lewy body dementia who has had multiple falls and progressive decline sustained a fall at [facility], which lead to skin tears on his right elbow. He was brougt to the ER due to edema and redness of his elbow. He is able to move his elbow freely. In the ED No leukocytosis noted and BMP WNL. Troponin was noted to be slightly elevated at 0.063. Xray of R elbow revealed soft tissue swelling over olecranon. CXR revealed possible trace right sided pleural effusion. He was admitted with cellulitis of R elbow. Dr Freed consulted for olecranon bursitis. - Discharge Data Discharge Date: 02/08/18 Discharge Disposition: DC/Tfer to SNF 03 Condition: Fair - Discharge Diagnosis/Problem(s) (1) Palliative care status SNOMED Code(s): 530461080 ICD Code: Z51.5 - ENCOUNTER FOR PALLIATIVE CARE Status: Acute Current Visit: Yes (2) Hypernatremia SNOMED Code(s): 18276079 ICD Code: E87.0 - HYPEROSMOLALITY AND HYPERNATREMIA Status: Acute Priority: High Current Visit: Yes (3) Delirium SNOMED Code(s): 3890554 ICD Code: R41.0 - DISORIENTATION, UNSPECIFIED Status: Acute Current Visit : Yes (4) Acute respiratory failure with hypoxia SNOMED Code(s): 58050259, 072563319 ICD Code: J96.01 - ACUTE RESPIRATORY FAILURE WITH HYPOXIA Status: Acute Current Visit: Yes (5) Healthcare-associated pneumonia SNOMED Code(s): 607673876 ICD Code: J18.9 - PNEUMONIA, UNSPECIFIED ORGANISM Status: Suspected Current Visit: Yes (6) Olecranon bursitis of right elbow SNOMED Code(s): 717439502 ICD Code: M70.21 - OLECRANON BURSITIS, RIGHT ELBOW Status: Acute Current Visit: Yes (7) Cellulitis SNOMED Code(s): 484355227 ICD Code: L03.90 - CELLULITIS, UNSPECIFIED Status: Acute Current Visit: Yes Qualifiers: Site of cellulitis: extremity Site of cellulitis of extremity: upper extremity Laterality: right Qualified Code(s): L03.113 - Cellulitis of right upper limb (8) Lewy body dementia SNOMED Code(s): 479757487 ICD Code: G31.83 - DEMENTIA WITH LEWY BODIES; F02.80 - DEMENTIA IN OTH DISEASES CLASSD ELSWHR W/O BEHAVRL DISTURB Status: Chronic Current Visit: Yes (9) Falls frequently SNOMED Code(s): 696762221 ICD Code: R29.6 - REPEATED FALLS Status: Chronic Current Visit: No (10) Dysphagia SNOMED Code(s): 72291846, 027847346 ICD Code: R13.10 - DYSPHAGIA, UNSPECIFIED Status: Chronic Current Visit: Yes (11) Carotid artery stenosis Status: Chronic Current Visit: Yes Qualifiers: Laterality: unspecified laterality Qualified Code(s): I65.29 - Occlusion and stenosis of unspecified carotid artery (12) Protein malnutrition SNOMED Code(s): 322985711 ICD Code: E46 - UNSPECIFIED PROTEIN-CALORIE MALNUTRITION Status: Chronic Current Visit: Yes - Patient Summary/Data Consults: Consultations 02/05/18 11:39 Consult to Physician [CONS] Routine - Patient Instructions Diet: Usual Diet as Tolerated Activity: As Tolerated Other/Special Instructions: Comfort Measures. Oxygen 2 L NC or 5 L Simple Mask PRN for comfort. Hospice to Consult in the future. - Discharge Plan Prescriptions/Med Rec: Hyoscyamine Sulfate [Levsin-Sl] 0.125 mg SL Q4HR PRN #25 tab.subl PRN Reason: Secretions Acetaminophen [Tylenol] 650 mg RECTAL Q6H PRN #15 supp PRN Reason: Fever or pain Bisacodyl [Dulcolax] 10 mg RC DAILY PRN #10 supp.rect PRN Reason: Constipation LORazepam [Ativan] 1 mg SL Q4H PRN #1 bottle PRN Reason: agitation,restlessness Morphine [Morphine 20 MG/ML Soln] 5 mg PO Q2H PRN #1 bottle PRN Reason: pain,restless,airhunger,SOB Home Medications: Home Meds Acetaminophen [Tylenol] 650 mg RECTAL Q6H PRN #15 supp 02/08/18 [Rx] Bisacodyl [Dulcolax] 10 mg RC DAILY PRN #10 supp.rect 02/08/18 [Rx] Hyoscyamine Sulfate [Levsin-Sl] 0.125 mg SL Q4HR PRN #25 tab.subl 02/08/18 [Rx] LORazepam [Ativan] 1 mg SL Q4H PRN #1 bottle 02/08/18 [Rx] Morphine [Morphine 20 MG/ML Soln] 5 mg PO Q2H PRN #1 bottle 02/08/18 [Rx] Patient Handouts: Morphine oral solution, Hypernatremia, [id number], Lewy Body Dementia, Bisacodyl suppositories, Elbow Bursitis, Maom-zb-Saeq, Cellulitis , Adult, Xrgq-[id number], Lorazepam oral solution, Acetaminophen rectal suppositories Referrals: Emmanuel Raygoza MD [Physician] - 02/10/18 - Discharge Summary/Plan Comment DC Time >30 min.: No Discharge Summary/Plan Comment: Discharge Diagnoses: Palliative Care Hypernatremia Delirium Acute hypoxic respiratory failure Suspected HCAP Olecranon bursitis, R R elbow cellulitis Lewy body dementia Frequent falls Dysphagia Carotid artery stenosis Protein malnutrition Vitaliy was admitted initially due to R elbow cellulitis and R olecranon bursitis. Dr Freed was consulted, who recommend conservative treatment at that time. He was being treated with Vancomycin and Zosyn. Day2 of admission, he continued to decline showing signs of acute hypoxic respiratory failure, CXR revealed new perihilar infiltrates, Levaquin was started. Increasing agitation and dyspnea continued with worsening renal function. Sepsis was suspected. Troponin did elevated and peak at 0.279. Family at that time requested palliative care, declined further cardiac workup and were discussing stopping all antibiotics. During this time, Vitaliy was treated with Vancomycin, Levaquin , and Zosyn. He continued not to eat or drink and was very agitated when disturbed. Ativan was continued nearly every 4-6 hours to help with agitation and restlessness. 02/07, hypernatremia notd with Na 149. Family at this time was offered the option of starting some IVFs, but decline and ultimately wanted full palliative care and to discontinue all antibiotics and provide medications that would give comfort only. I spoke with both daughters, Leana and Aurelia who agreed this is what their father would want. Today he continues to be very lethargic, awaking intermittently and instantly becomes agitated and restless. Ativan helps with these episodes. He has been on SM 5 L due to mouth breathing and for comfort. Family deciding to remove this at a later time, but currently will keep. He will be transfered to [facility] today, via EMS and to resume comfort measures there. I will order Ativan 1 mg SL every 4 hours PRN, Morphine 5 mg SL every 2 hours PRN, and Levsin for secretions. Family is in agreement with this, Leana, daughter at bedside this morning during rounds. I will notify Dr Raygoza, PCP at [facility] and make him aware of transition to comfort measures, with possible Hospice consult in the coming days. Family had no concerns at this time and all questions addressed. - General Info Date of Service: 02/08/18 Admission Dx/Problem (Free Text: Admission Diagnosis/Problem Admission Diagnosis/Problem R elbow cellulitis, palliative care Subjective Update: Unresponsive. Restless when disturbed for assessment, but does not open eyes and is not verbal. Leana at bedside, reports she and family continue to agree on comfort measures and are in agreement on transfer back to [facility] today. - Patient Data Vitals - Most Recent: Last Vital Signs Temp 98.2 F 02/07/18 11:34 Pulse 110 H 02/07/18 08:00 Resp 23 H 02/07/18 08:00 BP 100/62 02/07/18 08:00 Pulse Ox 98 02/07/18 08:00 Weight - Most Recent: 55.5 kg ANURAG Results - Last 24 hrs: Microbiology 02/04/18 21:58 Aerobic Blood Culture - Preliminary Blood - Venous - Lab Draw NO GROWTH AFTER 3 DAYS Anaerobic Blood Culture - Preliminary NO GROWTH AFTER 3 DAYS 02/04/18 21:47 Aerobic Blood Culture - Preliminary Blood - Venous NO GROWTH AFTER 3 DAYS Anaerobic Blood Culture - Preliminary NO GROWTH AFTER 3 DAYS 02/04/18 23:26 Urine Culture - Final Urine, Clean Catch No Growth 02/04/18 21:33 Wound Culture - Final Elbow, Right Staphylococcus Aureus Staphylococcus Coagulase Neg Med Orders - Current: Current Medications Acetaminophen (Tylenol) 650 mg PO Q4H PRN PRN Reason: Pain Acetaminophen (Tylenol) 650 mg RECTAL Q6H PRN PRN Reason: Fever Last Admin: 02/07/18 02:44 Dose: 650 mg Albuterol/Ipratropium (Duoneb 3.0-0.5 Mg/3 Ml) 3 ml NEB Q4HRRT PRN PRN Reason: Wheezing Last Admin: 02/06/18 03:46 Dose: 3 ml Donepezil HCl (Aricept) 10 mg PO BEDTIME SIMBA Last Admin: 02/08/18 03:28 Dose: Not Given Haloperidol Lactate (Haldol) 1 - 5 mg IM Q6H PRN PRN Reason: Agitation Last Admin: 02/06/18 00:28 Dose: 5 mg Lorazepam (Ativan) 0.5 mg PO TID PRN PRN Reason: Restlessness Lorazepam (Ativan) 1 mg IVPUSH Q4H PRN PRN Reason: Agitation Last Admin: 02/08/18 06:54 Dose: 1 mg Melatonin (Melatonin) 3 mg PO BEDTIME PRN PRN Reason: Insomnia Last Admin: 02/05/18 20:22 Dose: 3 mg Morphine Sulfate (Morphine) 2 mg IVPUSH Q2H PRN PRN Reason: pain, air hunger Olanzapine (Zyprexa) 10 mg PO BEDTIME SIMBA Last Admin: 02/08/18 03:28 Dose: Not Given Discontinued Medications Aspirin (Aspirin) 324 mg PO ONETIME ONE Stop: 02/04/18 23:01 Last Admin: 02/05/18 00:10 Dose: 324 mg Furosemide (Lasix) 40 mg IVPUSH NOW STA Stop: 02/06/18 05:46 Last Admin: 02/06/18 09:53 Dose: Not Given Haloperidol Lactate (Haldol) 1 mg IM Q6H PRN PRN Reason: Agitation Last Admin: 02/05/18 13:45 Dose: 1 mg Heparin Sodium (Porcine) (Heparin Sodium) 5,000 units SUBCUT Q12H [facility] Last Admin: 02/07/18 01:28 Dose: 5,000 units Sodium Chloride (Normal Saline) 1,000 mls @ 125 mls/hr IV STAT [facility] Last Admin: 02/05/18 23:52 Dose: 125 mls/hr Vancomycin HCl 1 gm/ Sodium (Chloride) 250 mls @ 250 mls/hr IV ONETIME ONE Stop: 02/05/18 00:41 Last Admin: 02/05/18 00:10 Dose: 250 mls/hr Piperacillin Sod/Tazobactam (Sod 3.375 gm/ Sodium Chloride) 50 mls @ 100 mls/ hr IV ONETIME ONE Stop: 02/05/18 00:12 Last Admin: 02/05/18 01:27 Dose: 100 mls/hr Piperacillin Sod/Tazobactam (Sod 3.375 gm/ Sodium Chloride) 50 mls @ 100 mls/ hr IV Q6H [facility] Last Admin: 02/07/18 08:53 Dose: Not Given Sodium Chloride (Normal Saline) 1,000 mls @ 125 mls/hr IV ASDIRECTED [facility] Last Admin: 02/05/18 05:32 Dose: 125 mls/hr Vancomycin HCl 1 gm/ Sodium (Chloride) 250 mls @ 166 mls/hr IV Q24H [facility] Last Admin: 02/07/18 01:28 Dose: 166 mls/hr Levofloxacin/Dextrose 750 mg/ (Premix) 150 mls @ 100 mls/hr IV Q48H [facility] Last Admin: 02/06/18 09:54 Dose: Not Given Levothyroxine Sodium (Synthroid) 50 mcg PO ACBREAKFAST [facility] Last Admin: 02/07/18 06:47 Dose: Not Given Vancomycin HCl (Pharmacy To Dose - Vancomycin) 1 dose .XX ASDIRECTED [facility] - Exam General: Reports: Obtunded Lungs: Reports: Rhonchi (throughout) Cardiovascular: Reports: Regular Rate, Regular Rhythm GI/Abdominal Exam: Normal Bowel Sounds, Soft Extremities: Normal Inspection, Normal Range of Motion, Non-Tender, No Pedal Edema, Normal Capillary Refill Skin: Reports: Other (skin tear to R elbow, healing, no fluctuance. No drainage. ) Wound/Incisions: Reports: Erythema Improving (edema and erythema to R elbow improved. Less tenderness noted with palpation today. ) Neurological: Reports: No New Focal Deficit Psy/Mental Status: Denies: Alert
[2018-02-08 08:37] VITALS: BP 129/83
== END 2018-02-08 11:00 | DRG 557 ==
LOC: MW.ED 21:27 → MW.MS 02-05 00:37
PROVIDERS: ADMIT Internal Medicine; ATTEND Internal Medicine
DX: M70.21 Olecranon bursitis, right elbow (principal); R50.9 Fever, unspecified; I12.9 Hypertensive chronic kidney disease with stage 1 through stage 4 chronic kidney disease, or unspecified chronic kidney disease; N18.9 Chronic kidney disease, unspecified; M19.90 Unspecified osteoarthritis, unspecified site; D64.9 Anemia, unspecified; J96.01 Acute respiratory failure with hypoxia; J18.9 Pneumonia, unspecified organism; L03.113 Cellulitis of right upper limb; E87.0 Hyperosmolality and hypernatremia; E46 Unspecified protein-calorie malnutrition; Z51.5 Encounter for palliative care; R41.0 Disorientation, unspecified; G31.83 Neurocognitive disorder with Lewy bodies; F02.80 Dementia in other diseases classified elsewhere, unspecified severity, without behavioral disturbance, psychotic disturbance, mood disturbance, and anxiety; W18.30XA Fall on same level, unspecified, initial encounter; Y92.129 Unspecified place in nursing home as the place of occurrence of the external cause; R13.10 Dysphagia, unspecified; I65.29 Occlusion and stenosis of unspecified carotid artery; Z79.899 Other long term (current) drug therapy
CPT/HCPCS: 36415; 71045; 73080; 80053; 81001; 82550; 82553; 83605; 83880; 84484; 85025; 85610; 87040 ×2; 87086; 87804 ×2; 93005; 96361; 96365; 99285; A9270; J3370; J7040; J7050; 80048; 85027; 85652; 86140; 87046; 87070; 87077; 87186; 87324; 87899; 94640; J1630; J1644; J2060; J2270; J2543